=== PATIENT | male | born 1965 | race Hispanic/Latino ===

== ENCOUNTER 2019-10-04 10:23 | Emergency (ER) | payer MEDICARE ==
[~2019-10-04 10:23] MED LIST: INSU100C14 SQ
[2019-10-04 11:05] LABS: CREATININE 1.6 mg/dL (0.5-1.5); POTASSIUM 5.4 mmol/L (3.5-5.1)
[2019-10-04 11:10] LABS: BILIRUBIN,TOTAL 1.9 mg/dL (0.2-1.0)
[2019-10-04 11:17] LABS: BASOPHILS % (AUTO) 0.9 % (0.0-5.0); EOSINOPHILS % (AUTO) 3.8 % (0.0-8.0); HEMATOCRIT 27.2 % (42-54); LYMPHOCYTES % (AUTO) 6.7 % (21.0-51.0); MEAN CORPUSCULAR HGB CONC 33.8 g/dL (32.0-36.0); MEAN CORPUSCULAR VOLUME 91.6 fL (79-99); MONOCYTES % (AUTO) 8.8 % (3.0-13.0); NEUTROPHILS % (AUTO) 79.5 % (40.0-77.0); PLATELET COUNT (AUTO) 30 K/uL (130-400); RED BLOOD CELL COUNT(AUTO) 2.97 MIL/uL (4.50-6.20); RED CELL DISTRIBUTION WIDTH 15.1 % (11.0-15.5); WHITE BLOOD COUNT (AUTO) 3.4 K/uL (4.8-10.8)
[2019-10-04] MEDS ORDERED: LACTULOSE 20 GM/30 ML UDCUP ONE (11:34)
== END 2019-10-04 13:06 | disposition home or self-care (01) ==
LOC: EDH 10:23
DX: K74.60 Unspecified cirrhosis of liver (principal); E72.20 Disorder of urea cycle metabolism, unspecified; E11.9 Type 2 diabetes mellitus without complications
CPT/HCPCS: 36415; 80053; 82140; 85025

== ENCOUNTER → 2021-11-11 | Outpatient (CLI) | payer MEDICARE ==
[~2021-11-11] MED LIST changes: +ALBUMIN (HUMAN) 25% 100 ML IV PRN; +ALBUMIN (HUMAN) 25% 200 ML IV PRN; +LACT PO; +LIDOCAINE HCL MPF 1% 5ML VIAL ONE; +PANT40TA PO; +RIFA550T PO; +SODI650T PO
[2021-11-11 08:53] LABS: INR 1.48 (0.85-1.15); PROTHROMBIN TIME 15.6 SEC (9.6-11.6)
[2021-11-11 08:54] LABS: PARTIAL THROMBOPLASTIN TIME 41.1 SEC (26.3-35.5)
[2021-11-11 14:14] LABS: APPEARANCE BODY FLUID CLOUDY (CLEAR); COLOR,BODY FLUID DARK YELLOW (LT YELLOW); SPECIMENTYPE,BODY FLUID ASCITES
[2021-11-11 14:15] LABS: BODY FLUID WBC 42 /cu. mm.; TOTAL VOLUME,BODY FLUID 8000 mL
[2021-11-11 14:16] LABS: BODY FLUID RBC 1525 /cu. mm.
[2021-11-11 14:26] LABS: BF LYMPHOCYTE 26 %; BF MONOCYTE 49 %
== END | disposition home or self-care (01) ==
LOC: RAH 08:07
PROVIDERS: ATTEND Family Medicine
DX: R18.8 Other ascites (principal); K74.60 Unspecified cirrhosis of liver; K86.1 Other chronic pancreatitis; E11.9 Type 2 diabetes mellitus without complications; Z79.01 Long term (current) use of anticoagulants; Z79.4 Long term (current) use of insulin
CPT/HCPCS: 36415; 49083; 85610; 85730; 87071; 87205; 89051; C1729; 96365; J3490

== ENCOUNTER → 2021-11-17 | Outpatient (CLI) | payer MEDICARE ==
[~2021-11-17] MED LIST changes: -ALBUMIN (HUMAN) 25% 100 ML IV PRN; -ALBUMIN (HUMAN) 25% 200 ML IV PRN; +ALBUMIN (HUMAN) 25% 200 ML IV SCH
[2021-11-17 16:39] LABS: APPEARANCE BODY FLUID SLIGHTLY CLOUDY (CLEAR); BODY FLUID WBC 29 /cu. mm.; COLOR,BODY FLUID YELLOW (LT YELLOW); SPECIMENTYPE,BODY FLUID ASCITES; TOTAL VOLUME,BODY FLUID 8000 mL
[2021-11-17 16:40] LABS: BODY FLUID RBC 827 /cu. mm.
[2021-11-17 16:47] LABS: BF EOSINOPHIL 4 %; BF LYMPHOCYTE 36 %; BF MESOTHELIAL 33 %; BF MONOCYTE 5 %
== END | disposition home or self-care (01) ==
LOC: RAH 08:16
PROVIDERS: ATTEND Family Medicine
DX: R18.8 Other ascites (principal)
CPT/HCPCS: 49083; 87071; 87205; 89051; C1729; J3490 ×2

== ENCOUNTER → 2021-12-22 | Outpatient (CLI) | payer MEDICARE ==
[2021-12-22 14:30] LABS: APPEARANCE BODY FLUID CLEAR (CLEAR); COLOR,BODY FLUID YELLOW (LT YELLOW); SPECIMENTYPE,BODY FLUID ASCITES
[2021-12-22 14:31] LABS: BODY FLUID RBC 710 /cu. mm.; BODY FLUID WBC 34 /cu. mm.; TOTAL VOLUME,BODY FLUID 9500 mL
[2021-12-22 14:40] LABS: BF LYMPHOCYTE 9 %; BF MESOTHELIAL 65 %; BF MONOCYTE 16 %
== END | disposition home or self-care (01) ==
LOC: RAH 08:19
PROVIDERS: ATTEND Family Medicine
DX: R18.8 Other ascites (principal)
CPT/HCPCS: 49083; 87071; 87205; 89051; 96365; C1729; J3490 ×2; P9046

== ENCOUNTER → 2021-12-29 | Outpatient (CLI) | payer MEDICARE ==
[~2021-12-29] MED LIST changes: -LIDOCAINE HCL MPF 1% 5ML VIAL ONE
[2021-12-29 16:53] LABS: SPECIMENTYPE,BODY FLUID ASCITES
[2021-12-29 16:54] LABS: APPEARANCE BODY FLUID CLEAR (CLEAR); BODY FLUID WBC 32 /cu. mm.; COLOR,BODY FLUID YELLOW (LT YELLOW); TOTAL VOLUME,BODY FLUID 6500 mL
[2021-12-29 16:55] LABS: BODY FLUID RBC 422 /cu. mm.
[2021-12-29 18:05] LABS: BF EOSINOPHIL 14 %; BF LYMPHOCYTE 9 %; BF MESOTHELIAL 1 %; BF MONOCYTE 15 %
== END | disposition home or self-care (01) ==
LOC: RAH 08:14
PROVIDERS: ATTEND Family Medicine
DX: R18.8 Other ascites (principal); K74.60 Unspecified cirrhosis of liver; E11.22 Type 2 diabetes mellitus with diabetic chronic kidney disease; K21.9 Gastro-esophageal reflux disease without esophagitis; N18.31 Chronic kidney disease, stage 3a; Z79.01 Long term (current) use of anticoagulants; Z79.899 Other long term (current) drug therapy; Z79.84 Long term (current) use of oral hypoglycemic drugs
CPT/HCPCS: 49083; 87071; 87205; 89051; C1729; P9046

== ENCOUNTER → 2022-01-12 | Outpatient (CLI) | payer MEDICARE ==
[~2022-01-12] MED LIST changes: +LIDOCAINE HCL 1% 20 ML VIAL ONE
[2022-01-12 13:37] LABS: APPEARANCE BODY FLUID SLIGHTLY CLOUDY (CLEAR); BODY FLUID RBC 375 /cu. mm.; BODY FLUID WBC 43 /cu. mm.; COLOR,BODY FLUID YELLOW (LT YELLOW); SPECIMENTYPE,BODY FLUID ASCITES; TOTAL VOLUME,BODY FLUID 8000 mL
[2022-01-12 13:39] LABS: BF LYMPHOCYTE 12 %; BF MESOTHELIAL 72 %; BF MONOCYTE 16 %
== END | disposition home or self-care (01) ==
LOC: RAH 08:30
PROVIDERS: ATTEND Family Medicine
DX: R18.8 Other ascites (principal); K74.60 Unspecified cirrhosis of liver; E11.9 Type 2 diabetes mellitus without complications; K21.9 Gastro-esophageal reflux disease without esophagitis; Z98.890 Other specified postprocedural states; Z79.899 Other long term (current) drug therapy; Z79.4 Long term (current) use of insulin
CPT/HCPCS: 49083; 87071; 87205; 89051; C1729; P9046; 96365

== ENCOUNTER → 2022-01-19 | Outpatient (CLI) | payer MEDICARE ==
[2022-01-19 10:09] LABS: INR 1.41 (0.85-1.15); PROTHROMBIN TIME 15.1 SEC (9.6-11.6)
[2022-01-19 10:11] LABS: PARTIAL THROMBOPLASTIN TIME 46.7 SEC (26.3-35.5)
[2022-01-19 15:53] LABS: BF LYMPHOCYTE 2 %; BF MESOTHELIAL 3 %; BF MONOCYTE 11 %
[2022-01-19 15:56] LABS: APPEARANCE BODY FLUID CLOUDY (CLEAR); COLOR,BODY FLUID LT YELLOW (LT YELLOW); SPECIMENTYPE,BODY FLUID ASCITES; TOTAL VOLUME,BODY FLUID 8700 mL
[2022-01-19 15:57] LABS: BODY FLUID RBC 940 /cu. mm.; BODY FLUID WBC 549 /cu. mm.
== END | disposition home or self-care (01) ==
LOC: RAH 08:34
PROVIDERS: ATTEND Family Medicine
DX: R18.8 Other ascites (principal); E11.9 Type 2 diabetes mellitus without complications; N18.30 Chronic kidney disease, stage 3 unspecified; K21.9 Gastro-esophageal reflux disease without esophagitis; Z79.01 Long term (current) use of anticoagulants; Z79.899 Other long term (current) drug therapy; Z98.890 Other specified postprocedural states
CPT/HCPCS: 36415; 49083; 85610; 85730; 87071; 87205; 89051; C1729; 96365

== ENCOUNTER → 2022-02-02 | Outpatient (CLI) | payer MEDICARE ==
[~2022-02-02] MED LIST changes: +CHOL100046 PO; +FOLI1TAB61 PO; +INSLAN SQ; -LACT PO; +LACT10SO9 PO; -LIDOCAINE HCL 1% 20 ML VIAL ONE; +LIDOCAINE HCL 400MG/20ML VIAL ONE; +LIDOCAINE HCL-MPF 1% 2ML VIAL ONE; -PANT40TA PO; +POTA-10 PO
[2022-02-02 14:00] LABS: APPEARANCE BODY FLUID SLIGHTLY CLOUDY (CLEAR); COLOR,BODY FLUID LT YELLOW (LT YELLOW); SPECIMENTYPE,BODY FLUID ASCITES; TOTAL VOLUME,BODY FLUID 8500 mL
[2022-02-02 14:01] LABS: BODY FLUID RBC 1375 /cu. mm.; BODY FLUID WBC 27 /cu. mm.
[2022-02-02 14:11] LABS: BF EOSINOPHIL 3 %; BF LYMPHOCYTE 8 %; BF MESOTHELIAL 70 %; BF MONOCYTE 4 %
== END | disposition home or self-care (01) ==
LOC: RAH 08:19
PROVIDERS: ATTEND Family Medicine
DX: R18.8 Other ascites (principal)
CPT/HCPCS: 49083; 87071; 87205; 89051; C1729; J3490 ×2; P9046

== ENCOUNTER → 2022-02-09 | Outpatient (CLI) | payer MEDICARE ==
[~2022-02-09] MED LIST changes: +LIDOCAINE HCL 1% MDV 50ML VIAL ONE; -LIDOCAINE HCL 400MG/20ML VIAL ONE; -LIDOCAINE HCL-MPF 1% 2ML VIAL ONE
[2022-02-09 15:48] LABS: APPEARANCE BODY FLUID CLOUDY (CLEAR); SPECIMENTYPE,BODY FLUID ASCITES; TOTAL VOLUME,BODY FLUID 7000 mL
[2022-02-09 15:49] LABS: BODY FLUID RBC 1970 /cu. mm.; BODY FLUID WBC 11 /cu. mm.
[2022-02-09 15:50] LABS: COLOR,BODY FLUID YELLOW (LT YELLOW)
[2022-02-09 17:49] LABS: BF EOSINOPHIL 1 %; BF LYMPHOCYTE 18 %; BF MONOCYTE 17 %
== END | disposition home or self-care (01) ==
LOC: RAH 07:57
PROVIDERS: ATTEND Family Medicine
DX: R18.8 Other ascites (principal); E11.9 Type 2 diabetes mellitus without complications; N18.30 Chronic kidney disease, stage 3 unspecified; K21.9 Gastro-esophageal reflux disease without esophagitis; Z79.899 Other long term (current) drug therapy; Z79.01 Long term (current) use of anticoagulants
CPT/HCPCS: 49083; 87071; 87205; 89051; C1729; J3490; P9046; 96365

== ENCOUNTER → 2022-02-16 | Outpatient (CLI) | payer MEDICARE ==
[~2022-02-16] MED LIST changes: +ALBUMIN (HUMAN) 25% 200 ML IV ONE; -ALBUMIN (HUMAN) 25% 200 ML IV SCH; +SODIUM BICARB 50MEQ 50ML VIAL 50 ML ONE
[2022-02-16 16:16] LABS: APPEARANCE BODY FLUID CLOUDY (CLEAR); SPECIMENTYPE,BODY FLUID ASCITES
[2022-02-16 16:17] LABS: BODY FLUID WBC 8 /cu. mm.; COLOR,BODY FLUID ORANGE (LT YELLOW); TOTAL VOLUME,BODY FLUID 9800 mL
[2022-02-16 16:18] LABS: BODY FLUID RBC 4620 /cu. mm.
[2022-02-16 21:09] LABS: BF LYMPHOCYTE 16 %; BF MONOCYTE 15 %; BF OTHER CELLS 2
== END | disposition home or self-care (01) ==
LOC: RAH 08:06
PROVIDERS: ATTEND Family Medicine
DX: R18.8 Other ascites (principal); E11.22 Type 2 diabetes mellitus with diabetic chronic kidney disease; N18.30 Chronic kidney disease, stage 3 unspecified; K21.9 Gastro-esophageal reflux disease without esophagitis; Z79.01 Long term (current) use of anticoagulants; Z79.899 Other long term (current) drug therapy
CPT/HCPCS: 49083; 87071; 87205; 89051; C1729; J3490 ×2; P9046; 96365

== ENCOUNTER → 2022-02-23 | Outpatient (CLI) | payer MEDICARE ==
[~2022-02-23] MED LIST changes: -ALBUMIN (HUMAN) 25% 200 ML IV ONE; +ALBUMIN (HUMAN) 25% 200 ML IV SCH; -SODIUM BICARB 50MEQ 50ML VIAL 50 ML ONE
[2022-02-23 14:55] LABS: APPEARANCE BODY FLUID CLEAR (CLEAR); BODY FLUID RBC 499 /cu. mm.; BODY FLUID WBC 27 /cu. mm.; COLOR,BODY FLUID YELLOW (LT YELLOW); SPECIMENTYPE,BODY FLUID ASCITES; TOTAL VOLUME,BODY FLUID 8700 mL
[2022-02-23 15:19] LABS: BF LYMPHOCYTE 14 %; BF MESOTHELIAL 73 %; BF MONOCYTE 12 %
== END | disposition home or self-care (01) ==
LOC: RAH 07:43
PROVIDERS: ATTEND Family Medicine
DX: R18.8 Other ascites (principal); K75.81 Nonalcoholic steatohepatitis (NASH); E11.22 Type 2 diabetes mellitus with diabetic chronic kidney disease; N18.30 Chronic kidney disease, stage 3 unspecified; K21.9 Gastro-esophageal reflux disease without esophagitis; Z79.899 Other long term (current) drug therapy; Z79.01 Long term (current) use of anticoagulants; Z79.4 Long term (current) use of insulin; Z98.890 Other specified postprocedural states
CPT/HCPCS: 49083; 87071; 87205; 89051; C1729; J3490; P9046; 96365

== ENCOUNTER 2022-03-09 23:25 | Observation (INO) | payer MEDICARE ==
[~2022-03-09] VITALS: Ht 172.7 cm; Wt 75.7 kg
[~2022-03-09 23:25] MED LIST changes: -ALBUMIN (HUMAN) 25% 200 ML IV SCH; -LIDOCAINE HCL 1% MDV 50ML VIAL ONE
[2022-03-10 00:32] LABS: BASOPHILS % (AUTO) 0.3 % (0.0-5.0); EOSINOPHILS % (AUTO) 0.8 % (0.0-8.0); HEMATOCRIT 23.6 % (42-54); LYMPHOCYTES % (AUTO) 4.7 % (21.0-51.0); MEAN CORPUSCULAR HEMOGLOBIN 33.1 pg (27.0-33.0); MEAN CORPUSCULAR HGB CONC 34.3 g/dL (32.0-36.0); MEAN CORPUSCULAR VOLUME 96.3 fL (79-99); MONOCYTES % (AUTO) 10.4 % (3.0-13.0); NEUTROPHILS % (AUTO) 83.5 % (40.0-77.0); PLATELET COUNT (AUTO) 16 K/uL (130-400); RED BLOOD CELL COUNT(AUTO) 2.45 MIL/uL (4.50-6.20); RED CELL DISTRIBUTION WIDTH 16.2 % (11.0-15.5); WHITE BLOOD COUNT (AUTO) 3.8 K/uL (4.8-10.8)
[2022-03-10 00:41] LABS: CREATININE 3.3 mg/dL (0.5-1.5); POTASSIUM 3.6 mmol/L (3.5-5.1)
[2022-03-10 00:44] LABS: INR 1.38 (0.85-1.15); PROTHROMBIN TIME 14.8 SEC (9.6-11.6)
[2022-03-10 00:46] LABS: PARTIAL THROMBOPLASTIN TIME 41.2 SEC (26.3-35.5); TOTAL PROTEIN, SERUM 6.8 g/dL (6.0-8.3)
[2022-03-10 01:04] LABS: BAND NEUTROPHILS % (MANUAL) 3 % (0-2); BASOPHILS % (MANUAL) 1 % (0-2); EOSINOPHILS % (MANUAL) 1 % (1-6); LYMPHOCYTES % (MANUAL) 8 % (22-44); MONOCYTES % (MANUAL) 7 % (2-9); SEGMENTED NEUTROPHILS % 80 % (40-70)
[2022-03-10 01:05] LABS: MAN.DIFF COMMENT-IMPRESSION MANUAL DIFFERENTIAL; PLATELET MORPHOLOGY COMMENT DECREASED
[2022-03-10 02:05] VITALS: BP 125/65
[2022-03-10] MEDS ORDERED: DiphenhydrAMINE HCL 50 MG/ML VIAL IV PRN (04:00)
[2022-03-10] MEDS ORDERED: ONDANSETRON 4MG INJ IV PRN (04:00)
[2022-03-10] MEDS ORDERED: LACTULOSE 20 GM/30 ML UDCUP PO ONE (04:00)
[2022-03-10] MEDS ORDERED: CEFTRIAXONE 1G VIAL IV SCH (04:00)
[2022-03-10] MEDS ORDERED: LACTULOSE 20 GM/30 ML UDCUP PO PRN (04:00)
[2022-03-10] MEDS ORDERED: DEXTROSE 50%-WATER 50 ML DISP.SYRIN IV PRN (05:30)
[2022-03-10] MEDS ORDERED: GLUCAGON 1MG KIT 1 MG ML IM PRN (05:30)
[2022-03-10 07:00] VITALS: BP_SYST 114; BP_SYST 125; BP_DIAS 58; BP_DIAS 70
[2022-03-10] MEDS: INSULIN HUMULIN R 100 UNIT/ML 3ML SQ SCH ×2 (07:30→11:30)
[2022-03-10] MEDS ORDERED: LACTULOSE 20 GM/30 ML UDCUP PO SCH (09:00)
[2022-03-10] MEDS ORDERED: PANTOPRAZOLE 40 MG/VIAL IVP SCH (09:00)
[2022-03-10] MEDS ORDERED: LIDOCAINE HCL 1% 10 ML VIAL ONE (11:04)
[2022-03-10] MEDS ORDERED: ALBUMIN (HUMAN) 25% 200 ML IV ONE (11:06)
[2022-03-10] MEDS ORDERED: ALBUMIN (HUMAN) 25% 300 ML IV SCH (12:00)
[2022-03-10 13:50] VITALS: BP 128/65
[2022-03-10] MEDS ORDERED: CYANOCOBALAMIN (VITAMIN B-12) 1,000 MCG TABLET PO SCH (14:30)
[2022-03-10] MEDS ORDERED: FOLIC ACID 1 MG TABLET PO SCH (14:30)
[2022-03-10] MEDS ORDERED: CYANOCOBALAMIN (VITAMIN B-12) 100 MCG TABLET ONE (14:37)
[2022-03-10] MEDS ORDERED: FOLIC ACID 1 MG TABLET ONE (14:37)
[2022-03-10 16:50] LABS: SPECIMENTYPE,BODY FLUID ASCITES
[2022-03-10 16:51] LABS: APPEARANCE BODY FLUID SLIGHTLY CLOUDY (CLEAR); BODY FLUID WBC 18 /cu. mm.; COLOR,BODY FLUID LT YELLOW (LT YELLOW); TOTAL VOLUME,BODY FLUID 12000 mL
[2022-03-10 16:52] LABS: BODY FLUID RBC 1174 /cu. mm.
[2022-03-10 17:50] LABS: BF LYMPHOCYTE 13 %; BF MESOTHELIAL 4 %; BF MONOCYTE 6 %; BF OTHER CELLS 5
[2022-03-30] MEDS ORDERED: SUCR1TAB2 PO (10:51)
== END 2022-03-10 14:30 | disposition home or self-care (01) ==
LOC: EDH 23:25 → INTOOBSV 03-10 03:56 → EDHIP 03-10 03:56 → 3CH 03-10 06:29
PROVIDERS: ADMIT Hospitalist; ATTEND Hospitalist
DX: K74.60 Unspecified cirrhosis of liver (principal); Z20.822 Contact with and (suspected) exposure to COVID-19; D69.6 Thrombocytopenia, unspecified; D61.818 Other pancytopenia; E72.20 Disorder of urea cycle metabolism, unspecified; N18.4 Chronic kidney disease, stage 4 (severe); D63.8 Anemia in other chronic diseases classified elsewhere; E11.22 Type 2 diabetes mellitus with diabetic chronic kidney disease; I63.9 Cerebral infarction, unspecified; I78.1 Nevus, non-neoplastic; K74.69 Other cirrhosis of liver; K76.0 Fatty (change of) liver, not elsewhere classified; L80 Vitiligo; R18.8 Other ascites; R29.700 NIHSS score 0; Z76.82 Awaiting organ transplant status; Z79.4 Long term (current) use of insulin; Z98.890 Other specified postprocedural states; Z79.899 Other long term (current) drug therapy
CPT/HCPCS: 96375; 36430; 99285; 80053; 82140; 85025; 89051; 85610; 85730; 86850; 86900; 86901; 87071; 87205; 82948; 36415; 87635; 74176; 49083; 96365; G0378 ×4; P9034; J0696; J3490; C9113; P9046 ×2; C1729

== ENCOUNTER 2022-03-22 18:13 | Inpatient (IN) | payer MEDICARE ==
[~2022-03-22] VITALS: Ht 172.7 cm; Wt 63.6 kg
[2022-03-22] MEDS ORDERED: ONDANSETRON 4MG INJ IVP ONE (20:00)
[2022-03-22 20:03] LABS: BASOPHILS % (AUTO) 0.4 % (0.0-5.0); EOSINOPHILS % (AUTO) 1.6 % (0.0-8.0); HEMATOCRIT 23.8 % (42-54); LYMPHOCYTES % (AUTO) 4.1 % (21.0-51.0); MEAN CORPUSCULAR HEMOGLOBIN 33.2 pg (27.0-33.0); MEAN CORPUSCULAR HGB CONC 35.7 g/dL (32.0-36.0); MONOCYTES % (AUTO) 7.1 % (3.0-13.0); NEUTROPHILS % (AUTO) 86.3 % (40.0-77.0); PLATELET COUNT (AUTO) 27 K/uL (130-400); RED BLOOD CELL COUNT(AUTO) 2.56 MIL/uL (4.50-6.20); RED CELL DISTRIBUTION WIDTH 16.2 % (11.0-15.5); WHITE BLOOD COUNT (AUTO) 7.4 K/uL (4.8-10.8)
[2022-03-22 20:19] LABS: B-TYPE NATRIURETIC PEPTIDE 14 pg/mL (0-100)
[2022-03-22 20:20] LABS: APPEARANCE,URINE CLEAR (CLEAR); BILIRUBIN,URINE NEGATIVE (NEGATIVE); COLOR,URINE YELLOW (YELLOW); GLUCOSE, URINE (UA) NEGATIVE (NEGATIVE); KETONES,URINE NEGATIVE (NEGATIVE); LEUKOCYTE ESTERASE ,URINE NEGATIVE (NEGATIVE); NITRATE,URINE NEGATIVE (NEGATIVE); OCCULT BLOOD,URINE NEGATIVE (NEGATIVE); PH,URINE 5.5 (5.0-8.0); PROTEIN,URINE NEGATIVE (NEGATIVE); UROBILINOGEN,URINE 0.2 mg/dL (0.2-1.0)
[2022-03-22 20:27] LABS: ALBUMIN 3.4 g/dL (3.5-5.0); CREATININE 4.1 mg/dL (0.5-1.5); POTASSIUM 4.2 mmol/L (3.5-5.1); TOTAL PROTEIN, SERUM 7.3 g/dL (6.0-8.3)
[2022-03-22] MEDS ORDERED: LACTULOSE 20 GM/30 ML UDCUP PO ONE (21:00)
[2022-03-22] MEDS ORDERED: ONDANSETRON 4MG INJ IV PRN (21:00)
[2022-03-22] MEDS ORDERED: 0.9% NACL 500ML IV.SOLN 500 ML IV ONE (21:00)
[2022-03-22] MEDS: LACTULOSE 20 GM/30 ML UDCUP PO SCH (21:15)
[2022-03-22] MEDS: 0.9%NACL 1000ML 1,000 ML IV SCH (21:15)
[2022-03-22] MEDS: INSULIN HUMULIN R 100 UNIT/ML 3ML SQ SCH (21:34)
[2022-03-22 21:42] LABS: INR 1.31 (0.85-1.15); PROTHROMBIN TIME 14.1 SEC (9.6-11.6)
[2022-03-22 21:43] LABS: PARTIAL THROMBOPLASTIN TIME 43.9 SEC (26.3-35.5)
[2022-03-22 23:49] LABS: ABG BASE EXCESS -9.3 mmol/L (-2.0-3.0); ABG HCO3 12.9 mmol/L (21.0-28.0); ABG OXYGEN SATURATION 92.5 % (95.0-99.0); ABG PCO2 21 mmHg (35-48)
[2022-03-23] VITALS (9 sets, daily range): BP systolic 109–131; BP diastolic 61–68
[2022-03-23 00:14] LABS: CREATININE,URINE RANDOM 127 mg/dL (30-135); SODIUM,URINE RANDOM < 14 mmol/l (40-220)
[2022-03-23] MEDS: LACTULOSE 20 GM/30 ML UDCUP PO SCH ×4 (03:34→21:00)
[2022-03-23 07:29] LABS: BASOPHILS % (AUTO) 0.4 % (0.0-5.0); EOSINOPHILS % (AUTO) 3.5 % (0.0-8.0); LYMPHOCYTES % (AUTO) 5.5 % (21.0-51.0); MEAN CORPUSCULAR HEMOGLOBIN 33.6 pg (27.0-33.0); MEAN CORPUSCULAR HGB CONC 35.9 g/dL (32.0-36.0); MEAN CORPUSCULAR VOLUME 93.7 fL (79-99); MONOCYTES % (AUTO) 10.9 % (3.0-13.0); NEUTROPHILS % (AUTO) 79.5 % (40.0-77.0); PLATELET COUNT (AUTO) 18 K/uL (130-400); RED BLOOD CELL COUNT(AUTO) 2.23 MIL/uL (4.50-6.20); RED CELL DISTRIBUTION WIDTH 16.3 % (11.0-15.5); WHITE BLOOD COUNT (AUTO) 4.5 K/uL (4.8-10.8)
[2022-03-23 07:40] LABS: HEMATOCRIT 20.9 % (42-54); MAGNESIUM 2.4 mg/dL (1.80-2.40); PHOSPHORUS 5.5 mg/dL (2.5-4.9); POTASSIUM 3.4 mmol/L (3.5-5.1)
[2022-03-23] MEDS: INSULIN HUMULIN R 100 UNIT/ML 3ML SQ SCH ×4 (07:40→21:00)
[2022-03-23] MEDS: FAMOTIDINE 20MG VIAL IV SCH (08:52)
[2022-03-23] MEDS: Vitamin B Complex/Vit C/Folic Acid PO SCH (08:52)
[2022-03-23] MEDS ORDERED: ALBUMIN (HUMAN) 25% 200 ML IV SCH ×3 (11:00→14:30)
[2022-03-23 12:33] LABS: APPEARANCE BODY FLUID CLOUDY (CLEAR); SPECIMENTYPE,BODY FLUID ASCITES; TOTAL VOLUME,BODY FLUID 5200 mL
[2022-03-23 12:34] LABS: COLOR,BODY FLUID PINK (LT YELLOW)
[2022-03-23 12:41] LABS: BODY FLUID RBC 7075 /cu. mm.; BODY FLUID WBC 47 /cu. mm.
[2022-03-23] MEDS: 0.9%NACL 1000ML 1,000 ML IV SCH (13:40)
[2022-03-23 13:48] LABS: BF BASOPHIL 1 %; BF LYMPHOCYTE 44 %; BF MESOTHELIAL 33 %; BF MONOCYTE 21 %
[2022-03-23] MEDS: ALBUMIN (HUMAN) 25% 100 ML IV SCH (21:27)
[2022-03-24 00:10] VITALS: BP 131/64
[2022-03-24 04:20] LABS: MEAN CORPUSCULAR HGB CONC 35.4 g/dL (32.0-36.0); MEAN CORPUSCULAR VOLUME 93.1 fL (79-99); RED BLOOD CELL COUNT(AUTO) 1.88 MIL/uL (4.50-6.20); RED CELL DISTRIBUTION WIDTH 15.7 % (11.0-15.5); WHITE BLOOD COUNT (AUTO) 3.2 K/uL (4.8-10.8)
[2022-03-24 04:26] LABS: HEMATOCRIT 17.5 % (42-54)
[2022-03-24 04:34] LABS: ALBUMIN 3.3 g/dL (3.5-5.0); CREATININE 3.7 mg/dL (0.5-1.5); TOTAL PROTEIN, SERUM 6.2 g/dL (6.0-8.3)
[2022-03-24] MEDS: ALBUMIN (HUMAN) 25% 100 ML IV SCH ×3 (04:40→22:01)
[2022-03-24] MEDS: LACTULOSE 20 GM/30 ML UDCUP PO SCH ×3 (04:43→18:21)
[2022-03-24 04:48] VITALS: BP 131/51
[2022-03-24] MEDS ORDERED: KCL 20 MEQ ERTAB PO ONE (05:30)
[2022-03-24] MEDS: INSULIN HUMULIN R 100 UNIT/ML 3ML SQ SCH ×4 (06:19→22:02)
[2022-03-24 07:00] VITALS: BP 128/60
[2022-03-24] MEDS: Vitamin B Complex/Vit C/Folic Acid PO SCH (08:47)
[2022-03-24] MEDS: FAMOTIDINE 20MG VIAL IV SCH (09:48)
[2022-03-24 10:44] VITALS: BP 139/62
[2022-03-24 10:58] LABS: HEMATOCRIT 20.2 % (42-54)
[2022-03-24 15:27] VITALS: BP 133/64
[2022-03-24 21:01] VITALS: BP 146/79
[2022-03-25] VITALS: BP 138/78
[2022-03-25] MEDS: LACTULOSE 20 GM/30 ML UDCUP PO SCH ×2 (00:08→05:12)
[2022-03-25 00:39] VITALS: BP 132/75
[2022-03-25] MEDS: ALBUMIN (HUMAN) 25% 100 ML IV SCH (05:13)
[2022-03-25 05:14] VITALS: BP 124/49
[2022-03-25 05:21] LABS: MEAN CORPUSCULAR HEMOGLOBIN 33.2 pg (27.0-33.0); MEAN CORPUSCULAR HGB CONC 35.8 g/dL (32.0-36.0); MEAN CORPUSCULAR VOLUME 92.7 fL (79-99); RED BLOOD CELL COUNT(AUTO) 2.05 MIL/uL (4.50-6.20); RED CELL DISTRIBUTION WIDTH 15.7 % (11.0-15.5); WHITE BLOOD COUNT (AUTO) 3.8 K/uL (4.8-10.8)
[2022-03-25 05:30] LABS: CREATININE 3.4 mg/dL (0.5-1.5); POTASSIUM 3.6 mmol/L (3.5-5.1)
[2022-03-25] MEDS: INSULIN HUMULIN R 100 UNIT/ML 3ML SQ SCH (06:44)
[2022-03-25] MEDS: Vitamin B Complex/Vit C/Folic Acid PO SCH (07:55)
[2022-03-25 08:00] VITALS: BP 143/68
[2022-03-25] MEDS: FAMOTIDINE 20MG VIAL IV SCH (09:30)
[2022-03-25 10:16] LABS: BASOPHILS % (AUTO) 0.5 % (0.0-5.0); EOSINOPHILS % (AUTO) 3.8 % (0.0-8.0); LYMPHOCYTES % (AUTO) 5.6 % (21.0-51.0); MEAN CORPUSCULAR HEMOGLOBIN 33.5 pg (27.0-33.0); MEAN CORPUSCULAR HGB CONC 35.9 g/dL (32.0-36.0); MEAN CORPUSCULAR VOLUME 93.3 fL (79-99); MONOCYTES % (AUTO) 12.8 % (3.0-13.0); NEUTROPHILS % (AUTO) 76.5 % (40.0-77.0); PLATELET COUNT (AUTO) 13 K/uL (130-400); RED BLOOD CELL COUNT(AUTO) 2.24 MIL/uL (4.50-6.20); RED CELL DISTRIBUTION WIDTH 15.4 % (11.0-15.5); WHITE BLOOD COUNT (AUTO) 3.9 K/uL (4.8-10.8)
[2022-03-25 10:23] LABS: HEMATOCRIT 20.9 % (42-54)
[2022-03-25 11:33] VITALS: BP 154/70
[2022-03-25] MEDS ORDERED: LACT PO ×2 (11:40→12:23)
[2022-03-30] MEDS ORDERED: SUCR1TAB2 PO (10:51)
== END 2022-03-25 11:58 | disposition home or self-care (01) | DRG 433 ==
LOC: EDH 18:13 → EDHIP 20:50 → 2DH 03-23 08:30 → 4BH 03-25 00:08
PROVIDERS: ADMIT Hospitalist; ATTEND Hospitalist
PROC: 0W9G3ZZ Drainage of Peritoneal Cavity, Percutaneous Approach (ICD-10-PCS; principal; 2022-03-23)
PROC: 30233N1 Transfusion of Nonautologous Red Blood Cells into Peripheral Vein, Percutaneous Approach (ICD-10-PCS; 2022-03-24)
DX: K74.60 Unspecified cirrhosis of liver (principal); D61.818 Other pancytopenia; N17.9 Acute kidney failure, unspecified; R18.8 Other ascites; K72.90 Hepatic failure, unspecified without coma; N18.9 Chronic kidney disease, unspecified; D73.1 Hypersplenism; E11.65 Type 2 diabetes mellitus with hyperglycemia; E11.22 Type 2 diabetes mellitus with diabetic chronic kidney disease; D63.8 Anemia in other chronic diseases classified elsewhere; Z82.0 Family history of epilepsy and other diseases of the nervous system; Z82.49 Family history of ischemic heart disease and other diseases of the circulatory system; Z83.3 Family history of diabetes mellitus; Z82.5 Family history of asthma and other chronic lower respiratory diseases; Z79.4 Long term (current) use of insulin; D50.0 Iron deficiency anemia secondary to blood loss (chronic)
CPT/HCPCS: 36415; 36600; 49083; 74018; 80048; 80053; 81003; 82140; 82270; 82570; 82803; 82948; 83735; 83880; 84100; 84300; 84484; 85014; 85018; 85025; 85027; 85610; 85730; 86850; 86900; 86901; 86923; 87071; 87205; 89051; 93005; C1729; G0378; J1815; J2405; J3490; J7030; J7040; P9016; P9046

== ENCOUNTER → 2022-04-08 | Outpatient (CLI) | payer MEDICARE ==
[~2022-04-08] MED LIST changes: +ALBUMIN (HUMAN) 25% 200 ML IV SCH; -INSU100C14 SQ; +LACT PO; +LIDOCAINE HCL-MPF 1% 2ML VIAL ONE; -POTA-10 PO; +POTA-200 PO; -SODI650T PO; +SUCR1TAB2 PO
[2022-04-08 13:02] LABS: APPEARANCE BODY FLUID CLEAR (CLEAR); COLOR,BODY FLUID YELLOW (LT YELLOW); SPECIMENTYPE,BODY FLUID ASCITES; TOTAL VOLUME,BODY FLUID 11000 mL
[2022-04-08 13:03] LABS: BODY FLUID RBC 993 /cu. mm.; BODY FLUID WBC 24 /cu. mm.
[2022-04-08 13:17] LABS: BF LYMPHOCYTE 25 %; BF MESOTHELIAL 50 %; BF MONOCYTE 15 %
== END | disposition home or self-care (01) ==
LOC: RAH 07:54
PROVIDERS: ATTEND Family Medicine
DX: R18.8 Other ascites (principal); K74.60 Unspecified cirrhosis of liver; E11.22 Type 2 diabetes mellitus with diabetic chronic kidney disease; N18.9 Chronic kidney disease, unspecified; D69.6 Thrombocytopenia, unspecified; K72.90 Hepatic failure, unspecified without coma; Z82.49 Family history of ischemic heart disease and other diseases of the circulatory system; Z83.3 Family history of diabetes mellitus; Z82.5 Family history of asthma and other chronic lower respiratory diseases; Z82.0 Family history of epilepsy and other diseases of the nervous system; Z98.890 Other specified postprocedural states; Z82.3 Family history of stroke; Z80.9 Family history of malignant neoplasm, unspecified
CPT/HCPCS: 49083; 89051; 87071; 87205; P9046; J3490; C1729; 96365

== ENCOUNTER → 2022-04-13 | Outpatient (CLI) | payer MEDICARE ==
[~2022-04-13] MED LIST changes: -LIDOCAINE HCL-MPF 1% 2ML VIAL ONE
[2022-04-13 13:19] LABS: APPEARANCE BODY FLUID CLOUDY (CLEAR); BODY FLUID WBC 42 /cu. mm.; COLOR,BODY FLUID YELLOW (LT YELLOW); SPECIMENTYPE,BODY FLUID ASCITES; TOTAL VOLUME,BODY FLUID 8700 mL
[2022-04-13 13:20] LABS: BODY FLUID RBC 2300 /cu. mm.
[2022-04-13 13:38] LABS: BF LYMPHOCYTE 19 %; BF MESOTHELIAL 58 %; BF MONOCYTE 16 %
== END | disposition home or self-care (01) ==
LOC: RAH 07:51
PROVIDERS: ATTEND Family Medicine
DX: R18.8 Other ascites (principal); K74.60 Unspecified cirrhosis of liver; E11.22 Type 2 diabetes mellitus with diabetic chronic kidney disease; N18.9 Chronic kidney disease, unspecified; D69.6 Thrombocytopenia, unspecified; K72.90 Hepatic failure, unspecified without coma; Z82.49 Family history of ischemic heart disease and other diseases of the circulatory system; Z83.3 Family history of diabetes mellitus; Z82.5 Family history of asthma and other chronic lower respiratory diseases; Z82.0 Family history of epilepsy and other diseases of the nervous system; Z98.890 Other specified postprocedural states; Z82.3 Family history of stroke; Z80.9 Family history of malignant neoplasm, unspecified; Z79.01 Long term (current) use of anticoagulants; Z79.899 Other long term (current) drug therapy
CPT/HCPCS: 49083; 89051; 87071; 87205; P9046; C1729; 96365

== ENCOUNTER → 2022-04-20 | Outpatient (CLI) | payer MEDICARE ==
[~2022-04-20] MED LIST changes: +LIDOCAINE HCL-MPF 1% 2ML VIAL ONE
[2022-04-20 13:55] LABS: APPEARANCE BODY FLUID CLOUDY (CLEAR); BODY FLUID WBC 46 /cu. mm.; COLOR,BODY FLUID RED (LT YELLOW); SPECIMENTYPE,BODY FLUID ASCITES; TOTAL VOLUME,BODY FLUID 11000 mL
[2022-04-20 13:56] LABS: BODY FLUID RBC 26425 /cu. mm.
[2022-04-20 14:15] LABS: BF EOSINOPHIL 2 %; BF LYMPHOCYTE 12 %; BF MESOTHELIAL 55 %; BF MONOCYTE 17 %
== END | disposition home or self-care (01) ==
LOC: RAH 07:52
PROVIDERS: ATTEND Family Medicine
DX: R18.8 Other ascites (principal); K74.60 Unspecified cirrhosis of liver; K72.90 Hepatic failure, unspecified without coma; E11.22 Type 2 diabetes mellitus with diabetic chronic kidney disease; N18.9 Chronic kidney disease, unspecified; D69.6 Thrombocytopenia, unspecified; Z79.899 Other long term (current) drug therapy; Z79.01 Long term (current) use of anticoagulants; Z98.890 Other specified postprocedural states; Z83.3 Family history of diabetes mellitus; Z82.5 Family history of asthma and other chronic lower respiratory diseases; Z82.0 Family history of epilepsy and other diseases of the nervous system; Z80.9 Family history of malignant neoplasm, unspecified; Z82.3 Family history of stroke
CPT/HCPCS: 49083; 89051; 87071; 87205; P9046; J3490; C1729; 96365

== ENCOUNTER → 2022-04-27 | Outpatient (CLI) | payer MEDICARE ==
[~2022-04-27] MED LIST changes: -ALBUMIN (HUMAN) 25% 200 ML IV SCH; +ALBUMIN (HUMAN) 25% 300 ML IV SCH; +LIDOCAINE HCL 1% 20 ML VIAL ONE; -LIDOCAINE HCL-MPF 1% 2ML VIAL ONE
[2022-04-27 16:09] LABS: SPECIMENTYPE,BODY FLUID ASCITES
[2022-04-27 16:10] LABS: APPEARANCE BODY FLUID SLIGHTLY CLOUDY (CLEAR); COLOR,BODY FLUID LT YELLOW (LT YELLOW); TOTAL VOLUME,BODY FLUID 7500 mL
[2022-04-27 16:15] LABS: BODY FLUID WBC 38 /cu. mm.
[2022-04-27 16:16] LABS: BODY FLUID RBC 1590 /cu. mm.
[2022-04-27 16:21] LABS: BF LYMPHOCYTE 27 %; BF MESOTHELIAL 23 %; BF MONOCYTE 3 %
== END | disposition home or self-care (01) ==
LOC: RAH 08:07
PROVIDERS: ATTEND Family Medicine
DX: R18.8 Other ascites (principal); K74.60 Unspecified cirrhosis of liver; K72.90 Hepatic failure, unspecified without coma; E11.22 Type 2 diabetes mellitus with diabetic chronic kidney disease; N18.9 Chronic kidney disease, unspecified; D69.6 Thrombocytopenia, unspecified; Z98.890 Other specified postprocedural states; Z83.3 Family history of diabetes mellitus; Z82.5 Family history of asthma and other chronic lower respiratory diseases; Z82.0 Family history of epilepsy and other diseases of the nervous system; Z80.9 Family history of malignant neoplasm, unspecified; Z82.3 Family history of stroke; Z79.01 Long term (current) use of anticoagulants; Z79.899 Other long term (current) drug therapy
CPT/HCPCS: 49083; 89051; 87071; 87205; C1729; 96365

== ENCOUNTER → 2022-05-05 | Outpatient (CLI) | payer MEDICARE ==
[~2022-05-05] MED LIST changes: +ALBUMIN (HUMAN) 25% 200 ML IV SCH; -ALBUMIN (HUMAN) 25% 300 ML IV SCH; -LIDOCAINE HCL 1% 20 ML VIAL ONE; +PANT40TA PO
[2022-05-05 09:11] LABS: INR 1.36 (0.85-1.15); PROTHROMBIN TIME 14.6 SEC (9.6-11.6)
[2022-05-05 09:12] LABS: PARTIAL THROMBOPLASTIN TIME 43.3 SEC (26.3-35.5)
[2022-05-05 12:10] LABS: APPEARANCE BODY FLUID SLIGHTLY CLOUDY (CLEAR); BODY FLUID WBC 103 /cu. mm.; COLOR,BODY FLUID YELLOW (LT YELLOW); SPECIMENTYPE,BODY FLUID ASCITES; TOTAL VOLUME,BODY FLUID 8500 mL
[2022-05-05 12:11] LABS: BODY FLUID RBC 1409 /cu. mm.
[2022-05-05 12:23] LABS: BF LYMPHOCYTE 2 %; BF MESOTHELIAL 14 %; BF MONOCYTE 25 %
== END | disposition home or self-care (01) ==
LOC: RAH 08:08
PROVIDERS: ATTEND Family Medicine
DX: R18.8 Other ascites (principal); K74.60 Unspecified cirrhosis of liver; K72.90 Hepatic failure, unspecified without coma; E11.22 Type 2 diabetes mellitus with diabetic chronic kidney disease; N18.9 Chronic kidney disease, unspecified; D69.6 Thrombocytopenia, unspecified; Z98.890 Other specified postprocedural states; Z83.3 Family history of diabetes mellitus; Z82.5 Family history of asthma and other chronic lower respiratory diseases; Z82.3 Family history of stroke; Z79.01 Long term (current) use of anticoagulants; Z79.899 Other long term (current) drug therapy; Z80.9 Family history of malignant neoplasm, unspecified; Z82.0 Family history of epilepsy and other diseases of the nervous system
CPT/HCPCS: 49083; 89051; 85610; 85730; 87071; 87205; 36415; P9046; C1729

== ENCOUNTER → 2022-06-02 | Outpatient (CLI) | payer MEDICARE ==
[~2022-06-02] MED LIST changes: -CHOL100046 PO; -FOLI1TAB61 PO; -LACT10SO9 PO; +Midodrine Hcl PO; -POTA-200 PO; -SUCR1TAB2 PO
[2022-06-02 18:41] LABS: APPEARANCE BODY FLUID CLOUDY (CLEAR); COLOR,BODY FLUID YELLOW (LT YELLOW); SPECIMENTYPE,BODY FLUID ASCITES; TOTAL VOLUME,BODY FLUID 11400 mL
[2022-06-02 18:42] LABS: BODY FLUID RBC 1138 /cu. mm.; BODY FLUID WBC 13 /cu. mm.
[2022-06-02 18:47] LABS: BF LYMPHOCYTE 13 %; BF MONOCYTE 15 %; BF OTHER CELLS 4
== END | disposition home or self-care (01) ==
LOC: RAH 08:09
PROVIDERS: ATTEND Family Medicine
DX: R18.8 Other ascites (principal); K74.69 Other cirrhosis of liver; Z82.3 Family history of stroke; Z80.9 Family history of malignant neoplasm, unspecified; Z82.0 Family history of epilepsy and other diseases of the nervous system; Z79.4 Long term (current) use of insulin; Z98.890 Other specified postprocedural states
CPT/HCPCS: 49083; 89051; 87071; 87205; P9046; C1729; 96365

== ENCOUNTER → 2022-06-09 | Outpatient (CLI) | payer MEDICARE ==
[~2022-06-09] MED LIST changes: -ALBUMIN (HUMAN) 25% 200 ML IV SCH; +ALBUMIN (HUMAN) 25% 300 ML IV ONE; +LIDOCAINE HCL-MPF 1% 2ML VIAL ONE
[2022-06-09 14:19] LABS: APPEARANCE BODY FLUID SLIGHTLY CLOUDY (CLEAR); COLOR,BODY FLUID YELLOW (LT YELLOW); SPECIMENTYPE,BODY FLUID ASCITES; TOTAL VOLUME,BODY FLUID 9600 mL
[2022-06-09 14:20] LABS: BODY FLUID RBC 1611 /cu. mm.; BODY FLUID WBC 36 /cu. mm.
[2022-06-09 15:14] LABS: BF BASOPHIL 1 %; BF LYMPHOCYTE 18 %; BF MESOTHELIAL 35 %; BF MONOCYTE 1 %
== END | disposition home or self-care (01) ==
LOC: RAH 06:53
PROVIDERS: ATTEND Family Medicine
DX: R18.8 Other ascites (principal); K74.69 Other cirrhosis of liver; D64.9 Anemia, unspecified; E11.9 Type 2 diabetes mellitus without complications; D69.6 Thrombocytopenia, unspecified; Z82.3 Family history of stroke; Z80.9 Family history of malignant neoplasm, unspecified; Z98.890 Other specified postprocedural states; Z82.49 Family history of ischemic heart disease and other diseases of the circulatory system; Z82.0 Family history of epilepsy and other diseases of the nervous system; Z82.5 Family history of asthma and other chronic lower respiratory diseases; Z83.3 Family history of diabetes mellitus; Z79.4 Long term (current) use of insulin; Z79.899 Other long term (current) drug therapy; Z79.01 Long term (current) use of anticoagulants
CPT/HCPCS: 49083; 89051; 87071; 87205; P9046; J3490; C1729; 96365

== ENCOUNTER 2022-06-12 09:11 | Observation (INO) | payer MEDICARE ==
[~2022-06-12] VITALS: Ht 172.7 cm; Wt 68.0 kg
[~2022-06-12 09:11] MED LIST changes: -ALBUMIN (HUMAN) 25% 300 ML IV ONE; -LIDOCAINE HCL-MPF 1% 2ML VIAL ONE
[2022-06-12 10:06] LABS: BASOPHILS % (AUTO) 0.4 % (0.0-5.0); EOSINOPHILS % (AUTO) 7.2 % (0.0-8.0); LYMPHOCYTES % (AUTO) 4.7 % (21.0-51.0); MEAN CORPUSCULAR HEMOGLOBIN 33.7 pg (27.0-33.0); MEAN CORPUSCULAR HGB CONC 33.3 g/dL (32.0-36.0); MONOCYTES % (AUTO) 10.8 % (3.0-13.0); NEUTROPHILS % (AUTO) 76.2 % (40.0-77.0); PLATELET COUNT (AUTO) 17 K/uL (130-400); RED BLOOD CELL COUNT(AUTO) 1.93 MIL/uL (4.50-6.20); RED CELL DISTRIBUTION WIDTH 16.3 % (11.0-15.5); WHITE BLOOD COUNT (AUTO) 2.8 K/uL (4.8-10.8)
[2022-06-12 10:21] LABS: CREATININE 2.8 mg/dL (0.5-1.5)
[2022-06-12 10:26] LABS: ALBUMIN 3.3 g/dL (3.5-5.0); TOTAL PROTEIN, SERUM 6.4 g/dL (6.0-8.3)
[2022-06-12 10:32] LABS: HEMATOCRIT 19.5 % (42-54)
[2022-06-12 11:49] LABS: EOSINOPHILS % (MANUAL) 2 % (1-6); LYMPHOCYTES % (MANUAL) 5 % (22-44); MAN.DIFF COMMENT-IMPRESSION MANUAL DIFFERENTIAL; MONOCYTES % (MANUAL) 4 % (2-9); SEGMENTED NEUTROPHILS % 89 % (40-70)
[2022-06-12 11:51] LABS: PLATELET MORPHOLOGY COMMENT MARKED DECREASE
[2022-06-12 15:56] VITALS: BP 107/42
== END 2022-06-12 16:10 | disposition left against medical advice (07) ==
LOC: EDH 09:11 → EDHIP 11:10
PROVIDERS: ADMIT Hospitalist; ATTEND Hospitalist
DX: D64.9 Anemia, unspecified (principal); K76.82 Hepatic encephalopathy; D61.818 Other pancytopenia; E11.9 Type 2 diabetes mellitus without complications; K74.69 Other cirrhosis of liver; Z76.82 Awaiting organ transplant status; Z79.4 Long term (current) use of insulin; Z79.899 Other long term (current) drug therapy; Z98.890 Other specified postprocedural states
CPT/HCPCS: 36430; 80053; 85025; 86850; 86900 ×2; 86901 ×2; 86923; 36415; 99291; G0378 ×2; P9016

== ENCOUNTER 2022-06-13 15:21 | Emergency (ER) | payer MEDICARE ==
[~2022-06-13] VITALS: Ht 172.7 cm; Wt 68.0 kg
[2022-06-13 15:23] VITALS: BP 133/60
[2022-06-13] MEDS ORDERED: HYDROCODONE/ACETAMINOPHEN 10/325 MG TAB PO ONE (16:00)
[2022-06-13 16:28] LABS: BASOPHILS % (AUTO) 0.2 % (0.0-5.0); EOSINOPHILS % (AUTO) 4.1 % (0.0-8.0); HEMATOCRIT 23.2 % (42-54); LYMPHOCYTES % (AUTO) 2.4 % (21.0-51.0); MEAN CORPUSCULAR HEMOGLOBIN 33.2 pg (27.0-33.0); MEAN CORPUSCULAR HGB CONC 33.6 g/dL (32.0-36.0); MEAN CORPUSCULAR VOLUME 98.7 fL (79-99); MONOCYTES % (AUTO) 7.4 % (3.0-13.0); NEUTROPHILS % (AUTO) 85.4 % (40.0-77.0); PLATELET COUNT (AUTO) 20 K/uL (130-400); RED BLOOD CELL COUNT(AUTO) 2.35 MIL/uL (4.50-6.20); RED CELL DISTRIBUTION WIDTH 17.2 % (11.0-15.5); WHITE BLOOD COUNT (AUTO) 4.2 K/uL (4.8-10.8)
[2022-06-13 16:38] LABS: CREATININE 2.9 mg/dL (0.5-1.5); POTASSIUM 4.8 mmol/L (3.5-5.1)
[2022-06-13 16:42] LABS: ALBUMIN 3.4 g/dL (3.5-5.0); TOTAL PROTEIN, SERUM 6.8 g/dL (6.0-8.3)
== END 2022-06-13 17:22 | disposition home or self-care (01) ==
LOC: EDH 15:21
DX: R18.8 Other ascites (principal); R10.84 Generalized abdominal pain
CPT/HCPCS: 36415; 74176; 80053; 83690; 85025

== ENCOUNTER → 2022-06-15 | Outpatient (CLI) | payer MEDICARE ==
[~2022-06-15] MED LIST changes: +ALBUMIN (HUMAN) 25% 200 ML IV SCH; +LIDOCAINE HCL 1% 20 ML VIAL ONE
[2022-06-15 10:56] LABS: APPEARANCE BODY FLUID SLIGHTLY CLOUDY (CLEAR); BODY FLUID RBC 4080 /cu. mm.; BODY FLUID WBC 40 /cu. mm.; COLOR,BODY FLUID DARK YELLOW (LT YELLOW); SPECIMENTYPE,BODY FLUID ASCITES; TOTAL VOLUME,BODY FLUID 9800 mL
[2022-06-15 11:30] LABS: BF LYMPHOCYTE 14 %; BF MESOTHELIAL 80 %; BF MONOCYTE 1 %
== END | disposition home or self-care (01) ==
LOC: RAH 08:13
PROVIDERS: ATTEND Family Medicine
DX: R18.8 Other ascites (principal); K74.69 Other cirrhosis of liver; E11.9 Type 2 diabetes mellitus without complications; D64.9 Anemia, unspecified; D69.6 Thrombocytopenia, unspecified; Z82.3 Family history of stroke; Z79.01 Long term (current) use of anticoagulants; Z79.899 Other long term (current) drug therapy; Z80.9 Family history of malignant neoplasm, unspecified; Z82.49 Family history of ischemic heart disease and other diseases of the circulatory system; Z98.890 Other specified postprocedural states; Z82.0 Family history of epilepsy and other diseases of the nervous system; Z82.5 Family history of asthma and other chronic lower respiratory diseases; Z83.3 Family history of diabetes mellitus; Z79.4 Long term (current) use of insulin
CPT/HCPCS: 49083; 89051; 87071; 87205; P9046; C1729; 96365

== ENCOUNTER → 2022-06-29 | Outpatient (CLI) | payer MEDICARE ==
[~2022-06-29] MED LIST changes: -ALBUMIN (HUMAN) 25% 200 ML IV SCH; +ALBUMIN (HUMAN) 25% 300 ML IV SCH; -LACT PO; +LACT10SO9 PO; -Midodrine Hcl PO; -PANT40TA PO
[2022-06-29 17:24] LABS: APPEARANCE BODY FLUID SLIGHTLY CLOUDY (CLEAR); BODY FLUID WBC 18 /cu. mm.; COLOR,BODY FLUID YELLOW (LT YELLOW); SPECIMENTYPE,BODY FLUID ASCITES
[2022-06-29 17:25] LABS: BODY FLUID RBC 1125 /cu. mm.; TOTAL VOLUME,BODY FLUID 7500 mL
[2022-06-29 19:42] LABS: BF LYMPHOCYTE 12 %; BF MESOTHELIAL 36 %; BF OTHER CELLS 6
== END | disposition home or self-care (01) ==
LOC: RAH 08:21
PROVIDERS: ATTEND Family Medicine
DX: R18.8 Other ascites (principal); K74.69 Other cirrhosis of liver; E11.9 Type 2 diabetes mellitus without complications; D64.9 Anemia, unspecified; D69.6 Thrombocytopenia, unspecified; Z82.3 Family history of stroke; Z80.9 Family history of malignant neoplasm, unspecified; Z82.49 Family history of ischemic heart disease and other diseases of the circulatory system; Z83.3 Family history of diabetes mellitus; Z82.0 Family history of epilepsy and other diseases of the nervous system; Z79.4 Long term (current) use of insulin; Z79.899 Other long term (current) drug therapy; Z79.01 Long term (current) use of anticoagulants
CPT/HCPCS: 49083; 89051; 87071; 87205; P9046; C1729; 96365

== ENCOUNTER → 2022-07-06 | Outpatient (CLI) | payer MEDICARE ==
[2022-07-06 12:33] LABS: APPEARANCE BODY FLUID CLOUDY (CLEAR); COLOR,BODY FLUID DARK YELLOW (LT YELLOW); SPECIMENTYPE,BODY FLUID ASCITES
[2022-07-06 12:34] LABS: TOTAL VOLUME,BODY FLUID 8000 mL
[2022-07-06 12:40] LABS: BODY FLUID RBC 6975 /cu. mm.; BODY FLUID WBC 31 /cu. mm.
[2022-07-06 13:12] LABS: BF LYMPHOCYTE 9 %; BF MESOTHELIAL 67 %; BF OTHER CELLS 17
== END | disposition home or self-care (01) ==
LOC: RAH 08:00
PROVIDERS: ATTEND Family Medicine
DX: R18.8 Other ascites (principal); K74.69 Other cirrhosis of liver; E11.9 Type 2 diabetes mellitus without complications; D64.9 Anemia, unspecified; D69.6 Thrombocytopenia, unspecified; Z82.3 Family history of stroke; Z80.9 Family history of malignant neoplasm, unspecified; Z82.49 Family history of ischemic heart disease and other diseases of the circulatory system; Z83.3 Family history of diabetes mellitus; Z82.0 Family history of epilepsy and other diseases of the nervous system; Z79.4 Long term (current) use of insulin; Z79.899 Other long term (current) drug therapy; Z79.01 Long term (current) use of anticoagulants
CPT/HCPCS: 49083; 89051; 87071; 87205; P9046; C1729; 96365

== ENCOUNTER 2022-07-13 00:19 | Emergency (ER) | payer MEDICARE ==
[~2022-07-13] VITALS: Ht 172.7 cm; Wt 72.1 kg
[~2022-07-13 00:19] MED LIST changes: -ALBUMIN (HUMAN) 25% 200 ML IV SCH; -LIDOCAINE HCL MPF 1% 5ML VIAL ONE; -QUESL4 PO
[2022-07-13 01:14] LABS: BASOPHILS % (AUTO) 0.2 % (0.0-5.0); EOSINOPHILS % (AUTO) 1.4 % (0.0-8.0); HEMATOCRIT 22.6 % (42-54); LYMPHOCYTES % (AUTO) 4.9 % (21.0-51.0); MEAN CORPUSCULAR HEMOGLOBIN 32.6 pg (27.0-33.0); MEAN CORPUSCULAR HGB CONC 34.1 g/dL (32.0-36.0); MEAN CORPUSCULAR VOLUME 95.8 fL (79-99); MONOCYTES % (AUTO) 7.8 % (3.0-13.0); NEUTROPHILS % (AUTO) 85.1 % (40.0-77.0); PLATELET COUNT (AUTO) 21 K/uL (130-400); RED BLOOD CELL COUNT(AUTO) 2.36 MIL/uL (4.50-6.20); RED CELL DISTRIBUTION WIDTH 16.5 % (11.0-15.5); WHITE BLOOD COUNT (AUTO) 4.9 K/uL (4.8-10.8)
[2022-07-13 01:26] LABS: APPEARANCE,URINE CLEAR (CLEAR); BILIRUBIN,URINE NEGATIVE (NEGATIVE); COLOR,URINE LIGHT-YELLOW (YELLOW); GLUCOSE, URINE (UA) NEGATIVE (NEGATIVE); KETONES,URINE NEGATIVE (NEGATIVE); LEUKOCYTE ESTERASE ,URINE NEGATIVE Leu/uL (NEGATIVE); NITRATE,URINE NEGATIVE (NEGATIVE); OCCULT BLOOD,URINE NEGATIVE (NEGATIVE); PROTEIN,URINE NEGATIVE (NEGATIVE); UROBILINOGEN,URINE 0.2 mg/dL (0.2-1.0)
[2022-07-13 01:26] LABS: INR 1.39 (0.85-1.15); PROTHROMBIN TIME 14.9 SEC (9.6-11.6)
[2022-07-13 01:27] LABS: PARTIAL THROMBOPLASTIN TIME 42.7 SEC (26.3-35.5)
[2022-07-13 01:29] LABS: PLATELET MORPHOLOGY COMMENT DECREASED
[2022-07-13 01:41] LABS: CREATININE 3.2 mg/dL (0.5-1.5); POTASSIUM 4.1 mmol/L (3.5-5.1)
[2022-07-13 01:45] LABS: ALBUMIN 3.4 g/dL (3.5-5.0); TOTAL PROTEIN, SERUM 7.3 g/dL (6.0-8.3)
[2022-07-13] MEDS: ONDANSETRON 4MG INJ IVP ONE ×2 (01:46→01:53)
[2022-07-13 03:00] VITALS: BP 144/77
== END 2022-07-13 03:42 | disposition home or self-care (01) ==
LOC: EDH 00:19
DX: R53.1 Weakness (principal); E72.20 Disorder of urea cycle metabolism, unspecified; E11.9 Type 2 diabetes mellitus without complications; K74.60 Unspecified cirrhosis of liver; Z79.4 Long term (current) use of insulin; Z79.899 Other long term (current) drug therapy; Z98.890 Other specified postprocedural states
CPT/HCPCS: 99285; 71045; 84484; 80053; 82140; 85025; 85610; 85730; 81003; 36415; 93005; J2405

== ENCOUNTER → 2022-07-13 | Outpatient (CLI) | payer MEDICARE ==
[~2022-07-13] MED LIST changes: +ALBUMIN (HUMAN) 25% 200 ML IV SCH; -ALBUMIN (HUMAN) 25% 300 ML IV SCH; -LIDOCAINE HCL 1% 20 ML VIAL ONE; +LIDOCAINE HCL MPF 1% 5ML VIAL ONE; +QUESL4 PO
[2022-07-13 13:46] LABS: APPEARANCE BODY FLUID SLIGHTLY CLOUDY (CLEAR); BODY FLUID WBC 69 /cu. mm.; COLOR,BODY FLUID YELLOW (LT YELLOW); SPECIMENTYPE,BODY FLUID ASCITES; TOTAL VOLUME,BODY FLUID 6200 mL
[2022-07-13 13:47] LABS: BODY FLUID RBC 3425 /cu. mm.
[2022-07-13 14:14] LABS: BF LYMPHOCYTE 21 %; BF MESOTHELIAL 14 %; BF MONOCYTE 7 %
== END | disposition home or self-care (01) ==
LOC: RAH 07:31
PROVIDERS: ATTEND Family Medicine
DX: R18.8 Other ascites (principal); K74.69 Other cirrhosis of liver; E11.9 Type 2 diabetes mellitus without complications; D64.9 Anemia, unspecified; D69.6 Thrombocytopenia, unspecified; Z82.3 Family history of stroke; Z80.9 Family history of malignant neoplasm, unspecified; Z82.49 Family history of ischemic heart disease and other diseases of the circulatory system; Z83.3 Family history of diabetes mellitus; Z82.0 Family history of epilepsy and other diseases of the nervous system; Z79.4 Long term (current) use of insulin; Z98.890 Other specified postprocedural states; Z79.01 Long term (current) use of anticoagulants; Z79.899 Other long term (current) drug therapy
CPT/HCPCS: 49083; 89051; 87071; 87077; 87186; 87205; P9046; J3490; C1729

== ENCOUNTER → 2022-07-20 | Outpatient (CLI) | payer MEDICARE ==
[~2022-07-20] MED LIST changes: +ALBUMIN (HUMAN) 25% 200 ML IV SCH; +LIDOCAINE HCL 1% 20 ML VIAL ONE
[2022-07-20 13:08] LABS: APPEARANCE BODY FLUID CLEAR (CLEAR); BODY FLUID RBC 2400 /cu. mm.; BODY FLUID WBC 59 /cu. mm.; COLOR,BODY FLUID YELLOW (LT YELLOW); SPECIMENTYPE,BODY FLUID ASCITES; TOTAL VOLUME,BODY FLUID 9200 mL
[2022-07-20 13:31] LABS: BF LYMPHOCYTE 13 %; BF MESOTHELIAL 69 %; BF MONOCYTE 5 %
== END | disposition home or self-care (01) ==
LOC: RAH 08:11
PROVIDERS: ATTEND Family Medicine
DX: R18.8 Other ascites (principal); K74.69 Other cirrhosis of liver; D64.9 Anemia, unspecified; D69.6 Thrombocytopenia, unspecified; E11.9 Type 2 diabetes mellitus without complications; Z79.01 Long term (current) use of anticoagulants; Z79.899 Other long term (current) drug therapy; Z82.3 Family history of stroke; Z80.9 Family history of malignant neoplasm, unspecified; Z82.49 Family history of ischemic heart disease and other diseases of the circulatory system; Z83.3 Family history of diabetes mellitus; Z82.0 Family history of epilepsy and other diseases of the nervous system; Z79.4 Long term (current) use of insulin; Z98.890 Other specified postprocedural states
CPT/HCPCS: 49083; 89051; 87071; 87205; C1729; 96365

== ENCOUNTER → 2022-08-03 | Outpatient (CLI) | payer MEDICARE ==
[~2022-08-03] MED LIST changes: -LIDOCAINE HCL 1% 20 ML VIAL ONE; +QUESL4 PO
[2022-08-03 17:27] LABS: APPEARANCE BODY FLUID SLIGHTLY CLOUDY (CLEAR); COLOR,BODY FLUID DARK YELLOW (LT YELLOW); SPECIMENTYPE,BODY FLUID ASCITES; TOTAL VOLUME,BODY FLUID 9000 mL
[2022-08-03 17:28] LABS: BODY FLUID RBC 4850 /cu. mm.; BODY FLUID WBC 7 /cu. mm.
[2022-08-03 18:30] LABS: BF LYMPHOCYTE 16 %; BF MONOCYTE 6 %; BF OTHER CELLS 4
== END | disposition home or self-care (01) ==
LOC: RAH 08:12
PROVIDERS: ATTEND Family Medicine
DX: R18.8 Other ascites (principal); K74.69 Other cirrhosis of liver; D64.9 Anemia, unspecified; D69.6 Thrombocytopenia, unspecified; E11.9 Type 2 diabetes mellitus without complications; Z79.01 Long term (current) use of anticoagulants; Z79.899 Other long term (current) drug therapy; Z82.3 Family history of stroke; Z80.9 Family history of malignant neoplasm, unspecified; Z82.49 Family history of ischemic heart disease and other diseases of the circulatory system; Z83.3 Family history of diabetes mellitus; Z82.0 Family history of epilepsy and other diseases of the nervous system; Z79.4 Long term (current) use of insulin; Z98.890 Other specified postprocedural states
CPT/HCPCS: 49083; 89051; 87071; 87205; C1729; P9046

== ENCOUNTER 2022-09-02 10:14 | Emergency (ER) | payer MEDICARE ==
[~2022-09-02] VITALS: Ht 172.7 cm; Wt 68.9 kg
[~2022-09-02 10:14] MED LIST changes: -ALBUMIN (HUMAN) 25% 200 ML IV SCH
[2022-09-02 11:00] LABS: BASOPHILS % (AUTO) 1.1 % (0.0-5.0); EOSINOPHILS % (AUTO) 6.4 % (0.0-8.0); HEMATOCRIT 26.2 % (42-54); LYMPHOCYTES % (AUTO) 7.5 % (21.0-51.0); MEAN CORPUSCULAR HEMOGLOBIN 32.6 pg (27.0-33.0); MEAN CORPUSCULAR HGB CONC 33.2 g/dL (32.0-36.0); MEAN CORPUSCULAR VOLUME 98.1 fL (79-99); MONOCYTES % (AUTO) 15.7 % (3.0-13.0); NEUTROPHILS % (AUTO) 68.6 % (40.0-77.0); PLATELET COUNT (AUTO) 18 K/uL (130-400); RED BLOOD CELL COUNT(AUTO) 2.67 MIL/uL (4.50-6.20); RED CELL DISTRIBUTION WIDTH 19.8 % (11.0-15.5); WHITE BLOOD COUNT (AUTO) 2.8 K/uL (4.8-10.8)
[2022-09-02 11:01] LABS: CREATININE 5.7 mg/dL (0.5-1.5); POTASSIUM 4.1 mmol/L (3.5-5.1)
[2022-09-02 11:03] LABS: INR 1.26 (0.85-1.15); PROTHROMBIN TIME 13.6 SEC (9.6-11.6)
[2022-09-02 11:06] LABS: TOTAL PROTEIN, SERUM 6.8 g/dL (6.0-8.3)
[2022-09-02 11:29] LABS: EOSINOPHILS % (MANUAL) 8 % (1-6); LYMPHOCYTES % (MANUAL) 4 % (22-44); MAN.DIFF COMMENT-IMPRESSION MANUAL DIFFERENTIAL; MONOCYTES % (MANUAL) 12 % (2-9); SEGMENTED NEUTROPHILS % 76 % (40-70)
[2022-09-02 11:30] LABS: PLATELET MORPHOLOGY COMMENT MARKED DECREASE
[2022-09-02] MEDS ORDERED: SODIUM BICARB 50MEQ 50ML VIAL 50 ML ONE (11:35)
[2022-09-02] MEDS ORDERED: LIDOCAINE HCL 1% 20 ML VIAL ONE ×2 (11:35→12:07)
[2022-09-02] MEDS ORDERED: ALBUMIN (HUMAN) 25% 200 ML IV ONE (11:36)
[2022-09-02 13:04] VITALS: BP 112/50
== END 2022-09-02 14:26 | disposition home or self-care (01) ==
LOC: EDH 10:14
DX: R18.8 Other ascites (principal); E11.9 Type 2 diabetes mellitus without complications; Z86.2 Personal history of diseases of the blood and blood-forming organs and certain disorders involving the immune mechanism; Z79.4 Long term (current) use of insulin; Z79.899 Other long term (current) drug therapy
CPT/HCPCS: 99285; 80053; 85025; 85610; 36415; 49083; 96365; J3490; P9046; C1729; 49082

== ENCOUNTER 2022-09-06 16:41 | Emergency (ER) | payer MEDICARE ==
[~2022-09-06] VITALS: Ht 172.7 cm; Wt 69.4 kg
[2022-09-06 16:41] VITALS: BP 127/66
== END 2022-09-06 18:33 | disposition left against medical advice (07) ==
LOC: EDH 16:41
DX: Z53.21 Procedure and treatment not carried out due to patient leaving prior to being seen by health care provider (principal)

== ENCOUNTER → 2022-09-08 | Outpatient (CLI) | payer MEDICARE ==
[~2022-09-08] MED LIST changes: +ALBUMIN (HUMAN) 25% 200 ML IV SCH; +CEFD300C3 PO; +CHOL4POW14 PO; +LIDOCAINE HCL 1% 20 ML VIAL ONE; +vitamin b 12 PO
[2022-09-08 13:23] LABS: APPEARANCE BODY FLUID SLIGHTLY CLOUDY (CLEAR); COLOR,BODY FLUID DARK YELLOW (LT YELLOW); SPECIMENTYPE,BODY FLUID ASCITES; TOTAL VOLUME,BODY FLUID 9000 mL
[2022-09-08 13:29] LABS: BODY FLUID WBC 38 /cu. mm.
[2022-09-08 13:30] LABS: BODY FLUID RBC 3150 /cu. mm.
[2022-09-08 14:07] LABS: BF LYMPHOCYTE 16 %; BF MESOTHELIAL 66 %; BF MONOCYTE 13 %
== END | disposition home or self-care (01) ==
LOC: RAH 09:00
PROVIDERS: ATTEND Family Medicine
DX: R18.8 Other ascites (principal); K74.69 Other cirrhosis of liver; D64.9 Anemia, unspecified; D69.6 Thrombocytopenia, unspecified; E11.9 Type 2 diabetes mellitus without complications; Z79.899 Other long term (current) drug therapy; Z98.890 Other specified postprocedural states; Z82.3 Family history of stroke; Z80.9 Family history of malignant neoplasm, unspecified; Z82.49 Family history of ischemic heart disease and other diseases of the circulatory system; Z83.3 Family history of diabetes mellitus; Z82.0 Family history of epilepsy and other diseases of the nervous system; Z79.4 Long term (current) use of insulin; Z79.01 Long term (current) use of anticoagulants
CPT/HCPCS: 49083; 89051; 87071; 87205; P9046; C1729; 96365

== ENCOUNTER 2022-09-16 21:09 | Inpatient (IN) | payer MEDICARE ==
[~2022-09-16] VITALS: Ht 172.7 cm; Wt 68.2 kg
[~2022-09-16 21:09] MED LIST changes: -ALBUMIN (HUMAN) 25% 200 ML IV SCH; -LIDOCAINE HCL 1% 20 ML VIAL ONE
[2022-09-16 23:09] LABS: BASOPHILS % (AUTO) 0.5 % (0.0-5.0); EOSINOPHILS % (AUTO) 2.6 % (0.0-8.0); HEMATOCRIT 23.7 % (42-54); LYMPHOCYTES % (AUTO) 4.2 % (21.0-51.0); MEAN CORPUSCULAR HEMOGLOBIN 32.4 pg (27.0-33.0); MEAN CORPUSCULAR HGB CONC 34.2 g/dL (32.0-36.0); MEAN CORPUSCULAR VOLUME 94.8 fL (79-99); MONOCYTES % (AUTO) 9.4 % (3.0-13.0); NEUTROPHILS % (AUTO) 82.8 % (40.0-77.0); PLATELET COUNT (AUTO) 16 K/uL (130-400); RED CELL DISTRIBUTION WIDTH 19.2 % (11.0-15.5); WHITE BLOOD COUNT (AUTO) 3.8 K/uL (4.8-10.8)
[2022-09-16 23:19] LABS: CREATININE 7.1 mg/dL (0.5-1.5); POTASSIUM 3.7 mmol/L (3.5-5.1)
[2022-09-16 23:24] LABS: ALBUMIN 2.8 g/dL (3.5-5.0); TOTAL PROTEIN, SERUM 6.7 g/dL (6.0-8.3)
[2022-09-17] VITALS (16 sets, daily range): BP systolic 95–129; BP diastolic 48–67
[2022-09-17] MEDS ORDERED: LACTULOSE 20 GM/30 ML UDCUP ONE (00:14)
[2022-09-17] MEDS ORDERED: ONDANSETRON 4MG INJ ONE (00:15)
[2022-09-17] MEDS ORDERED: HYDROCODONE/ACETAMINOPHEN 5/325 MG TAB PO PRN (00:30)
[2022-09-17] MEDS ORDERED: HYDROMORPHONE 1 MG INJ IV PRN (00:30)
[2022-09-17] MEDS ORDERED: ONDANSETRON 4MG INJ IV PRN (00:30)
[2022-09-17] MEDS: LACTULOSE 20 GM/30 ML UDCUP PO SCH ×4 (00:30→21:20)
[2022-09-17 06:58] LABS: BASOPHILS % (AUTO) 0.6 % (0.0-5.0); EOSINOPHILS % (AUTO) 3.7 % (0.0-8.0); HEMATOCRIT 21.4 % (42-54); LYMPHOCYTES % (AUTO) 7.1 % (21.0-51.0); MEAN CORPUSCULAR HGB CONC 34.1 g/dL (32.0-36.0); MEAN CORPUSCULAR VOLUME 96.8 fL (79-99); MONOCYTES % (AUTO) 13.6 % (3.0-13.0); NEUTROPHILS % (AUTO) 74.4 % (40.0-77.0); PLATELET COUNT (AUTO) 13 K/uL (130-400); RED BLOOD CELL COUNT(AUTO) 2.21 MIL/uL (4.50-6.20); WHITE BLOOD COUNT (AUTO) 3.2 K/uL (4.8-10.8)
[2022-09-17 07:16] LABS: CREATININE 7.6 mg/dL (0.5-1.5); MAGNESIUM 2.1 mg/dL (1.80-2.40); PHOSPHORUS 8.9 mg/dL (2.5-4.9); POTASSIUM 3.9 mmol/L (3.5-5.1)
[2022-09-17 07:21] LABS: INR 1.33 (0.85-1.15); PROTHROMBIN TIME 14.3 SEC (9.6-11.6)
[2022-09-17 07:22] LABS: PARTIAL THROMBOPLASTIN TIME 39.2 SEC (26.3-35.5)
[2022-09-17] MEDS: PANTOPRAZOLE 40 MG TAB DR PO SCH (08:49)
[2022-09-17] MEDS ORDERED: FAMOTIDINE 20MG TAB PO SCH (09:00)
[2022-09-17] MEDS ORDERED: HEPARIN 5,000 UNIT VIAL ONE (19:15)
[2022-09-18] VITALS (19 sets, daily range): BP systolic 101–118; BP diastolic 54–70
[2022-09-18 02:52] LABS: HEPATITIS B SURFACE ANTIGEN Non-Reactive (Nonreactive)
[2022-09-18] MEDS: LACTULOSE 20 GM/30 ML UDCUP PO SCH ×2 (02:56→09:38)
[2022-09-18 04:40] LABS: BASOPHILS % (AUTO) 0.6 % (0.0-5.0); EOSINOPHILS % (AUTO) 4.9 % (0.0-8.0); HEMATOCRIT 23.5 % (42-54); LYMPHOCYTES % (AUTO) 6.2 % (21.0-51.0); MEAN CORPUSCULAR HEMOGLOBIN 32.5 pg (27.0-33.0); MEAN CORPUSCULAR VOLUME 95.5 fL (79-99); MONOCYTES % (AUTO) 11.7 % (3.0-13.0); NEUTROPHILS % (AUTO) 76.3 % (40.0-77.0); PLATELET COUNT (AUTO) 14 K/uL (130-400); RED BLOOD CELL COUNT(AUTO) 2.46 MIL/uL (4.50-6.20); RED CELL DISTRIBUTION WIDTH 18.6 % (11.0-15.5); WHITE BLOOD COUNT (AUTO) 3.1 K/uL (4.8-10.8)
[2022-09-18 04:42] LABS: ALBUMIN 2.7 g/dL (3.5-5.0); CREATININE 6.4 mg/dL (0.5-1.5); PHOSPHORUS 7.4 mg/dL (2.5-4.9); TOTAL PROTEIN, SERUM 6.7 g/dL (6.0-8.3)
[2022-09-18] MEDS: PANTOPRAZOLE 40 MG TAB DR PO SCH (09:38)
[2022-09-18] MEDS ORDERED: HEPARIN 5,000 UNIT VIAL IV SCH (16:00)
== END 2022-09-18 16:55 | disposition home or self-care (01) | DRG 441 ==
LOC: EDH 21:09 → EDHIP 23:51 → 4CH 09-17 02:11
PROVIDERS: ADMIT Hospitalist; ATTEND Hospitalist
PROC: 5A1D70Z Performance of Urinary Filtration, Intermittent, Less than 6 Hours Per Day (ICD-10-PCS; principal; 2022-09-17)
PROC: 30233R1 Transfusion of Nonautologous Platelets into Peripheral Vein, Percutaneous Approach (ICD-10-PCS; 2022-09-17)
PROC: 5A1D70Z Performance of Urinary Filtration, Intermittent, Less than 6 Hours Per Day (ICD-10-PCS; 2022-09-18)
DX: K76.82 Hepatic encephalopathy (principal); G92.8 Other toxic encephalopathy; N18.6 End stage renal disease; D61.818 Other pancytopenia; D68.4 Acquired coagulation factor deficiency; E87.20 Acidosis, unspecified; N17.9 Acute kidney failure, unspecified; R18.8 Other ascites; E87.70 Fluid overload, unspecified; K74.69 Other cirrhosis of liver; D69.59 Other secondary thrombocytopenia; E11.22 Type 2 diabetes mellitus with diabetic chronic kidney disease; Z91.199 Patient's noncompliance with other medical treatment and regimen due to unspecified reason; Z79.4 Long term (current) use of insulin; Z82.0 Family history of epilepsy and other diseases of the nervous system; Z82.49 Family history of ischemic heart disease and other diseases of the circulatory system; Z82.5 Family history of asthma and other chronic lower respiratory diseases; Z83.3 Family history of diabetes mellitus; Z86.73 Personal history of transient ischemic attack (TIA), and cerebral infarction without residual deficits; Z99.2 Dependence on renal dialysis
CPT/HCPCS: 36415; 80048; 80053; 82140; 82948; 83735; 84100; 85025; 85610; 85730; 86704; 86706; 86850; 86900; 86901; 87340; 90935; G0378; J1644; J2405; P9034

== ENCOUNTER → 2022-09-24 | Outpatient (CLI) | payer MEDICARE ==
[~2022-09-24] MED LIST changes: +ALBUMIN (HUMAN) 25% 200 ML IV SCH; +CALC0.253 PO; +LIDOCAINE HCL 1% 20 ML VIAL ONE; +LINA5TAB PO; +MIDO10TA PO; +PANT40TA55 PO; +TAMS-1 PO; +URSO500T10 PO
== END | disposition home or self-care (01) ==
LOC: RAH 08:09
PROVIDERS: ATTEND Family Medicine
DX: R18.8 Other ascites (principal); K74.69 Other cirrhosis of liver; D64.9 Anemia, unspecified; D69.6 Thrombocytopenia, unspecified; E11.9 Type 2 diabetes mellitus without complications; Z79.899 Other long term (current) drug therapy; Z79.01 Long term (current) use of anticoagulants; Z98.890 Other specified postprocedural states; Z82.3 Family history of stroke; Z80.9 Family history of malignant neoplasm, unspecified; Z82.49 Family history of ischemic heart disease and other diseases of the circulatory system; Z83.3 Family history of diabetes mellitus; Z80.2 Family history of malignant neoplasm of other respiratory and intrathoracic organs
CPT/HCPCS: 49083; P9046; C1729

== ENCOUNTER 2022-09-26 06:36 | Inpatient (IN) | payer MEDICARE ==
[~2022-09-26] VITALS: Ht 172.7 cm; Wt 69.4 kg
[~2022-09-26 06:36] MED LIST changes: -ALBUMIN (HUMAN) 25% 200 ML IV SCH; -CALC0.253 PO; -LIDOCAINE HCL 1% 20 ML VIAL ONE; -LINA5TAB PO; -MIDO10TA PO; -PANT40TA55 PO; -TAMS-1 PO; -URSO500T10 PO
[2022-09-26 07:06] LABS: BASOPHILS % (AUTO) 0.7 % (0.0-5.0); EOSINOPHILS % (AUTO) 8.5 % (0.0-8.0); HEMATOCRIT 23.5 % (42-54); LYMPHOCYTES % (AUTO) 4.4 % (21.0-51.0); MEAN CORPUSCULAR HEMOGLOBIN 32.9 pg (27.0-33.0); MEAN CORPUSCULAR HGB CONC 33.6 g/dL (32.0-36.0); MEAN CORPUSCULAR VOLUME 97.9 fL (79-99); MONOCYTES % (AUTO) 11.7 % (3.0-13.0); PLATELET COUNT (AUTO) 18 K/uL (130-400); RED CELL DISTRIBUTION WIDTH 17.4 % (11.0-15.5); WHITE BLOOD COUNT (AUTO) 4.1 K/uL (4.8-10.8)
[2022-09-26 07:26] LABS: ALBUMIN 2.9 g/dL (3.5-5.0); CREATININE 5.1 mg/dL (0.5-1.5); POTASSIUM 3.2 mmol/L (3.5-5.1); TOTAL PROTEIN, SERUM 6.9 g/dL (6.0-8.3)
[2022-09-26 07:30] LABS: INR 1.24 (0.85-1.15); PROTHROMBIN TIME 13.4 SEC (9.6-11.6)
[2022-09-26 07:31] LABS: PARTIAL THROMBOPLASTIN TIME 38.1 SEC (26.3-35.5)
[2022-09-26 07:44] LABS: PLATELET MORPHOLOGY COMMENT MARKED DECREASE
[2022-09-26] MEDS ORDERED: LACTULOSE 20 GM/30 ML UDCUP PO SCH ×3 (10:00→14:00)
[2022-09-26] MEDS ORDERED: 0.9% NACL 500ML IV.SOLN 500 ML IV SCH (10:00)
[2022-09-26] MEDS: PANTOPRAZOLE 40 MG/VIAL IVP SCH ×2 (11:17→22:48)
[2022-09-26] MEDS ORDERED: ZOSYN 3.375GM +NS 50ML IV SCH (11:30)
[2022-09-26] MEDS ORDERED: Vitamin B Complex/Vit C/Folic Acid PO SCH (11:30)
[2022-09-26] MEDS ORDERED: TAMS-1 PO (12:15)
[2022-09-26] MEDS ORDERED: MIDO10TA PO (12:15)
[2022-09-26] MEDS ORDERED: CALC0.253 PO (12:15)
[2022-09-26] MEDS ORDERED: URSO500T10 PO (12:15)
[2022-09-26] MEDS ORDERED: LINA5TAB PO (12:15)
[2022-09-26] MEDS ORDERED: PANT40TA55 PO (12:15)
[2022-09-26 12:20] VITALS: BP 95/41
[2022-09-26] MEDS ORDERED: DEXTROSE 50%-WATER 50 ML DISP.SYRIN IV PRN (13:00)
[2022-09-26] MEDS ORDERED: INSULIN HUMULIN R 100 UNIT/ML 3ML SQ SCH (13:00)
[2022-09-26] MEDS ORDERED: GLUCAGON 1MG KIT 1 MG ML IM PRN (13:00)
[2022-09-26 13:04] LABS: HEMOGLOBIN A1C 6.1 % (4.0-6.0)
[2022-09-26 16:00] VITALS: BP 95/47
[2022-09-26] MEDS: INSULIN HUMULIN R 100 UNIT/ML 3ML SQ SCH ×2 (16:30→21:00)
[2022-09-26] MEDS: LACTULOSE 20 GM/30 ML UDCUP PO SCH (17:38)
[2022-09-26 20:00] VITALS: BP 98/53
[2022-09-26] MEDS: RIFAXIMIN 550 MG TABLET PO SCH (20:47)
[2022-09-26] MEDS: ZOSYN 3.375GM +NS 50ML IV SCH (20:47)
[2022-09-27] VITALS: BP 131/62
[2022-09-27] MEDS: LACTULOSE 20 GM/30 ML UDCUP PO SCH ×4 (00:01→17:34)
[2022-09-27 04:00] VITALS: BP 128/60
[2022-09-27 05:10] LABS: BASOPHILS % (AUTO) 0.7 % (0.0-5.0); EOSINOPHILS % (AUTO) 15.1 % (0.0-8.0); LYMPHOCYTES % (AUTO) 7.2 % (21.0-51.0); MEAN CORPUSCULAR HEMOGLOBIN 33.2 pg (27.0-33.0); MEAN CORPUSCULAR HGB CONC 33.7 g/dL (32.0-36.0); MEAN CORPUSCULAR VOLUME 98.5 fL (79-99); MONOCYTES % (AUTO) 12.7 % (3.0-13.0); PLATELET COUNT (AUTO) 15 K/uL (130-400); RED BLOOD CELL COUNT(AUTO) 1.96 MIL/uL (4.50-6.20); RED CELL DISTRIBUTION WIDTH 17.5 % (11.0-15.5); WHITE BLOOD COUNT (AUTO) 2.9 K/uL (4.8-10.8)
[2022-09-27 05:23] LABS: ALBUMIN 2.4 g/dL (3.5-5.0); CREATININE 5.9 mg/dL (0.5-1.5); PHOSPHORUS 5.7 mg/dL (2.5-4.9)
[2022-09-27 05:51] LABS: HEMATOCRIT 19.3 % (42-54)
[2022-09-27 06:17] LABS: BAND NEUTROPHILS % (MANUAL) 10 % (0-2); BASOPHILS % (MANUAL) 1 % (0-2); EOSINOPHILS % (MANUAL) 11 % (1-6); LYMPHOCYTES % (MANUAL) 15 % (22-44); MONOCYTES % (MANUAL) 5 % (2-9); SEGMENTED NEUTROPHILS % 58 % (40-70)
[2022-09-27 06:18] LABS: MAN.DIFF COMMENT-IMPRESSION MANUAL DIFFERENTIAL
[2022-09-27] MEDS ORDERED: POTASSIUM CHLORIDE 10% ELIXIR 20 MEQ/15 ML UDCUP ONE (06:25)
[2022-09-27] MEDS ORDERED: POTASSIUM CHLORIDE 10% ELIXIR 20 MEQ/15 ML UDCUP PO SCH (06:30)
[2022-09-27] MEDS: INSULIN HUMULIN R 100 UNIT/ML 3ML SQ SCH ×4 (06:54→21:30)
[2022-09-27 08:00] VITALS: BP 99/53
[2022-09-27] MEDS ORDERED: RIFAXIMIN 550 MG TABLET PO SCH (09:00)
[2022-09-27] MEDS ORDERED: URSODIOL 500 MG PO SCH (09:00)
[2022-09-27] MEDS: URSODIOL 500 MG PO SCH ×2 (09:00→21:00)
[2022-09-27] MEDS ORDERED: NON-FORMULARY MEDICATION 1 EACH (Midodrine HCl 10 MG) PO SCH (09:00)
[2022-09-27] MEDS: ZOSYN 3.375GM +NS 50ML IV SCH ×2 (09:19→21:15)
[2022-09-27] MEDS: MIDODRINE HCL 5 MG TABLET PO SCH ×3 (09:19→21:15)
[2022-09-27] MEDS: RIFAXIMIN 550 MG TABLET PO SCH ×2 (09:19→21:15)
[2022-09-27] MEDS: Vitamin B Complex/Vit C/Folic Acid PO SCH (09:20)
[2022-09-27] MEDS: TAMSULOSIN HCL 0.4 MG CAP.ER.24H PO SCH (09:20)
[2022-09-27] MEDS: LINAGLIPTIN 5 MG TABLET PO SCH (09:20)
[2022-09-27] MEDS: PANTOPRAZOLE 40 MG/VIAL IVP SCH (11:23)
[2022-09-27 11:35] VITALS: BP 95/55
[2022-09-27] MEDS ORDERED: HYDROXYZINE 25 MG TABLET PO PRN (13:30)
[2022-09-27 16:00] VITALS: BP 97/57
[2022-09-27 20:00] VITALS: BP 108/58
[2022-09-28] VITALS (21 sets, daily range): BP systolic 91–121; BP diastolic 50–89
[2022-09-28] MEDS: PANTOPRAZOLE 40 MG/VIAL IVP SCH ×3 (00:39→23:19)
[2022-09-28] MEDS: LACTULOSE 20 GM/30 ML UDCUP PO SCH ×5 (00:39→23:19)
[2022-09-28 05:16] LABS: BASOPHILS % (AUTO) 0.6 % (0.0-5.0); EOSINOPHILS % (AUTO) 14.4 % (0.0-8.0); LYMPHOCYTES % (AUTO) 7.6 % (21.0-51.0); MEAN CORPUSCULAR HEMOGLOBIN 33.3 pg (27.0-33.0); MEAN CORPUSCULAR HGB CONC 33.5 g/dL (32.0-36.0); MEAN CORPUSCULAR VOLUME 99.5 fL (79-99); MONOCYTES % (AUTO) 10.7 % (3.0-13.0); NEUTROPHILS % (AUTO) 66.1 % (40.0-77.0); PLATELET COUNT (AUTO) 17 K/uL (130-400); RED CELL DISTRIBUTION WIDTH 17.1 % (11.0-15.5); WHITE BLOOD COUNT (AUTO) 3.3 K/uL (4.8-10.8)
[2022-09-28 05:25] LABS: HEMATOCRIT 20.9 % (42-54)
[2022-09-28 05:26] LABS: ALBUMIN 2.4 g/dL (3.5-5.0); BILIRUBIN,DIRECT 0.9 mg/dL (0.0-0.3); CREATININE 7.1 mg/dL (0.5-1.5); POTASSIUM 3.5 mmol/L (3.5-5.1); TOTAL PROTEIN, SERUM 6.1 g/dL (6.0-8.3)
[2022-09-28] MEDS: INSULIN HUMULIN R 100 UNIT/ML 3ML SQ SCH ×4 (06:57→21:00)
[2022-09-28] MEDS: URSODIOL 500 MG PO SCH ×2 (09:00→21:00)
[2022-09-28] MEDS: TAMSULOSIN HCL 0.4 MG CAP.ER.24H PO SCH (09:39)
[2022-09-28] MEDS: ZOSYN 3.375GM +NS 50ML IV SCH ×2 (09:39→23:19)
[2022-09-28] MEDS: Vitamin B Complex/Vit C/Folic Acid PO SCH (09:39)
[2022-09-28] MEDS: RIFAXIMIN 550 MG TABLET PO SCH ×2 (09:39→23:19)
[2022-09-28] MEDS: LINAGLIPTIN 5 MG TABLET PO SCH (09:39)
[2022-09-28] MEDS: MIDODRINE HCL 5 MG TABLET PO SCH ×3 (09:39→23:19)
[2022-09-28] MEDS ORDERED: ALLOPURINOL 100 MG TABLET PO SCH (21:00)
[2022-09-29 04:54] VITALS: BP 100/50
[2022-09-29 05:29] LABS: BASOPHILS % (AUTO) 0.6 % (0.0-5.0); EOSINOPHILS % (AUTO) 11.7 % (0.0-8.0); LYMPHOCYTES % (AUTO) 6.3 % (21.0-51.0); MEAN CORPUSCULAR HEMOGLOBIN 33.2 pg (27.0-33.0); MEAN CORPUSCULAR HGB CONC 33.8 g/dL (32.0-36.0); MONOCYTES % (AUTO) 9.8 % (3.0-13.0); PLATELET COUNT (AUTO) 13 K/uL (130-400); RED BLOOD CELL COUNT(AUTO) 1.99 MIL/uL (4.50-6.20); RED CELL DISTRIBUTION WIDTH 17.3 % (11.0-15.5); WHITE BLOOD COUNT (AUTO) 3.2 K/uL (4.8-10.8)
[2022-09-29 05:33] LABS: HEMATOCRIT 19.5 % (42-54)
[2022-09-29 05:53] LABS: ALBUMIN 2.2 g/dL (3.5-5.0); CREATININE 5.6 mg/dL (0.5-1.5); POTASSIUM 3.2 mmol/L (3.5-5.1); TOTAL PROTEIN, SERUM 5.8 g/dL (6.0-8.3)
[2022-09-29] MEDS: LACTULOSE 20 GM/30 ML UDCUP PO SCH ×3 (06:00→17:14)
[2022-09-29] MEDS: INSULIN HUMULIN R 100 UNIT/ML 3ML SQ SCH ×3 (06:11→16:30)
[2022-09-29 08:00] VITALS: BP 96/41
[2022-09-29] MEDS: MIDODRINE HCL 5 MG TABLET PO SCH ×2 (08:17→17:14)
[2022-09-29] MEDS: RIFAXIMIN 550 MG TABLET PO SCH (08:17)
[2022-09-29] MEDS: URSODIOL 500 MG PO SCH (08:17)
[2022-09-29] MEDS: ZOSYN 3.375GM +NS 50ML IV SCH (08:17)
[2022-09-29] MEDS: Vitamin B Complex/Vit C/Folic Acid PO SCH (08:17)
[2022-09-29] MEDS: LINAGLIPTIN 5 MG TABLET PO SCH (08:17)
[2022-09-29] MEDS: TAMSULOSIN HCL 0.4 MG CAP.ER.24H PO SCH (08:17)
[2022-09-29 11:51] VITALS: BP 88/49
[2022-09-29] MEDS: PANTOPRAZOLE 40 MG/VIAL IVP SCH (12:31)
[2022-09-29 15:52] VITALS: BP 92/50
== END 2022-09-29 18:00 | disposition home or self-care (01) | DRG 441 ==
LOC: EDH 06:36 → EDHIP 11:01 → 4AH 12:31
PROVIDERS: ADMIT Hospitalist; ATTEND Internal Medicine
PROC: 5A1D70Z Performance of Urinary Filtration, Intermittent, Less than 6 Hours Per Day (ICD-10-PCS; 2022-09-28)
PROC: 30233N1 Transfusion of Nonautologous Red Blood Cells into Peripheral Vein, Percutaneous Approach (ICD-10-PCS; principal; 2022-09-29)
PROC: 30233R1 Transfusion of Nonautologous Platelets into Peripheral Vein, Percutaneous Approach (ICD-10-PCS; 2022-09-29)
PROC: 0W9G30Z Drainage of Peritoneal Cavity with Drainage Device, Percutaneous Approach (ICD-10-PCS; 2022-09-29)
DX: K76.82 Hepatic encephalopathy (principal); K76.7 Hepatorenal syndrome; N18.6 End stage renal disease; E87.20 Acidosis, unspecified; D68.9 Coagulation defect, unspecified; R18.8 Other ascites; I12.0 Hypertensive chronic kidney disease with stage 5 chronic kidney disease or end stage renal disease; K74.60 Unspecified cirrhosis of liver; Z20.822 Contact with and (suspected) exposure to COVID-19; D63.8 Anemia in other chronic diseases classified elsewhere; D72.819 Decreased white blood cell count, unspecified; D69.6 Thrombocytopenia, unspecified; D50.0 Iron deficiency anemia secondary to blood loss (chronic); E11.22 Type 2 diabetes mellitus with diabetic chronic kidney disease; Z99.2 Dependence on renal dialysis; Z79.899 Other long term (current) drug therapy; Z79.84 Long term (current) use of oral hypoglycemic drugs
CPT/HCPCS: 36415; 49083; 70450; 71045; 74018; 76700; 80048; 80053; 80076; 82140; 82550; 82948; 83036; 83605; 83735; 83880; 84100; 84145; 84484; 85025; 85610; 85651; 85730; 86140; 86850; 86900; 86901; 86923; 87040; 87804; 90935; 93005; C1729; C9113; G0378; J1815; J2543; J7040; P9016; P9034

== ENCOUNTER → 2022-10-05 | Outpatient (CLI) | payer MEDICARE ==
[~2022-10-05] MED LIST changes: +ALBUMIN (HUMAN) 25% 200 ML IV SCH; +CALC0.253 PO; -CEFD300C3 PO; -CHOL4POW14 PO; +LIDOCAINE HCL MPF 1% 5ML VIAL ONE; +LINA5TAB PO; +MIDO10TA PO; +PANT40TA55 PO; -QUESL4 PO; +TAMS-1 PO; +URSO500T10 PO
== END | disposition home or self-care (01) ==
LOC: RAH 10:58
PROVIDERS: ATTEND Family Medicine
DX: R18.8 Other ascites (principal); K74.69 Other cirrhosis of liver; E11.22 Type 2 diabetes mellitus with diabetic chronic kidney disease; N18.6 End stage renal disease; Z79.01 Long term (current) use of anticoagulants; Z79.899 Other long term (current) drug therapy; Z98.890 Other specified postprocedural states
CPT/HCPCS: 49083; P9046; J3490; C1729; 96365

== ENCOUNTER → 2022-10-29 | Outpatient (CLI) | payer MEDICARE ==
[~2022-10-29] MED LIST changes: +LIDOCAINE HCL 1% 20 ML VIAL ONE; -LIDOCAINE HCL MPF 1% 5ML VIAL ONE; -vitamin b 12 PO
== END | disposition home or self-care (01) ==
LOC: RAH 09:52
PROVIDERS: ATTEND Family Medicine
DX: R18.8 Other ascites (principal); K74.69 Other cirrhosis of liver; E11.22 Type 2 diabetes mellitus with diabetic chronic kidney disease; N18.6 End stage renal disease; Z79.01 Long term (current) use of anticoagulants; Z79.899 Other long term (current) drug therapy; Z98.890 Other specified postprocedural states
CPT/HCPCS: 49083; P9046; C1729

== ENCOUNTER → 2022-11-05 | Outpatient (CLI) | payer MEDICARE | END | disposition home or self-care (01) | LOC: RAH 09:07 | PROVIDERS: ATTEND Family Medicine | DX: R18.8 Other ascites (principal); K74.69 Other cirrhosis of liver; E11.22 Type 2 diabetes mellitus with diabetic chronic kidney disease; N18.6 End stage renal disease; N40.0 Benign prostatic hyperplasia without lower urinary tract symptoms; K21.9 Gastro-esophageal reflux disease without esophagitis; Z79.899 Other long term (current) drug therapy; Z79.01 Long term (current) use of anticoagulants | CPT/HCPCS: 49083; P9046; C1729; 96365 ==

== ENCOUNTER → 2022-11-12 | Outpatient (CLI) | payer MEDICARE ==
[2022-11-12 11:28] LABS: INR 1.4 (0.85-1.15)
[2022-11-12 11:29] LABS: PARTIAL THROMBOPLASTIN TIME 45.6 SEC (26.3-35.5)
== END | disposition home or self-care (01) ==
LOC: RAH 08:41
PROVIDERS: ATTEND Family Medicine
DX: R18.8 Other ascites (principal); K74.69 Other cirrhosis of liver; E11.22 Type 2 diabetes mellitus with diabetic chronic kidney disease; N18.6 End stage renal disease; N40.0 Benign prostatic hyperplasia without lower urinary tract symptoms; K21.9 Gastro-esophageal reflux disease without esophagitis; Z79.01 Long term (current) use of anticoagulants; Z79.899 Other long term (current) drug therapy
CPT/HCPCS: 49083; 85610; 85730; 36415; P9046; C1729

== ENCOUNTER 2022-11-18 06:32 | Emergency (ER) | payer MEDICARE ==
[~2022-11-18] VITALS: Ht 172.7 cm; Wt 68.0 kg
[~2022-11-18 06:32] MED LIST changes: -ALBUMIN (HUMAN) 25% 200 ML IV SCH; -LIDOCAINE HCL 1% 20 ML VIAL ONE
[2022-11-18 06:57] LABS: BASOPHILS % (AUTO) 0.7 % (0.0-5.0); EOSINOPHILS % (AUTO) 7.7 % (0.0-8.0); HEMATOCRIT 27.3 % (42-54); LYMPHOCYTES % (AUTO) 13.7 % (21.0-51.0); MEAN CORPUSCULAR VOLUME 106.2 fL (79-99); MONOCYTES % (AUTO) 7.9 % (3.0-13.0); NEUTROPHILS % (AUTO) 69.1 % (40.0-77.0); PLATELET COUNT (AUTO) 31 K/uL (130-400); RED BLOOD CELL COUNT(AUTO) 2.57 MIL/uL (4.50-6.20); RED CELL DISTRIBUTION WIDTH 17.2 % (11.0-15.5); WHITE BLOOD COUNT (AUTO) 4.5 K/uL (4.8-10.8)
[2022-11-18 07:08] LABS: INR 1.25 (0.85-1.15); PROTHROMBIN TIME 13.5 SEC (9.6-11.6)
[2022-11-18 07:09] LABS: PARTIAL THROMBOPLASTIN TIME 35.2 SEC (26.3-35.5)
[2022-11-18 07:14] LABS: ALBUMIN 2.9 g/dL (3.5-5.0); CREATININE 5.6 mg/dL (0.5-1.5); POTASSIUM 3.2 mmol/L (3.5-5.1); TOTAL PROTEIN, SERUM 6.7 g/dL (6.0-8.3)
[2022-11-18 07:59] LABS: PLATELET MORPHOLOGY COMMENT MARKED DECREASE
[2022-11-18] MEDS ORDERED: POTASSIUM BICARB/CIT AC 25 MEQ TABLET.EFF PO ONE (08:00)
[2022-11-18 08:06] LABS: B-TYPE NATRIURETIC PEPTIDE 18 pg/mL (0-100)
[2022-11-18] MEDS ORDERED: SODIUM BICARB 50MEQ 50ML VIAL 50 ML ONE (08:33)
[2022-11-18] MEDS ORDERED: LIDOCAINE HCL 1% 20 ML VIAL ONE (08:33)
[2022-11-18] MEDS ORDERED: ALBUMIN (HUMAN) 25% 200 ML IV ONE (08:34)
[2022-11-18] MEDS ORDERED: ACETAMINOPHEN WITH CODEINE 1 TAB TAB PO ONE (11:00)
[2022-11-18 11:35] VITALS: BP 96/62
[2022-11-18 13:35] LABS: APPEARANCE BODY FLUID CLOUDY (CLEAR); COLOR,BODY FLUID RED (LT YELLOW); SPECIMENTYPE,BODY FLUID ASCITES; TOTAL VOLUME,BODY FLUID 9000 mL
[2022-11-18 13:36] LABS: BODY FLUID RBC 24702 /cu. mm.; BODY FLUID WBC 3915 /cu. mm.
[2022-11-18 15:11] LABS: BF LYMPHOCYTE 1 %; BF MONOCYTE 4 %
== END 2022-11-18 11:37 | disposition home or self-care (01) ==
LOC: EDH 06:32
DX: K74.60 Unspecified cirrhosis of liver (principal); N18.6 End stage renal disease; E78.00 Pure hypercholesterolemia, unspecified; K21.9 Gastro-esophageal reflux disease without esophagitis; Z79.84 Long term (current) use of oral hypoglycemic drugs; Z79.899 Other long term (current) drug therapy
CPT/HCPCS: 99285; 80053; 83880; 82140; 83690; 85025; 89051; 85610; 85730; 86850; 86900; 86901; 87071; 87205; 36415; 49083; 96365; 96375; J3490; P9046; C1729

== ENCOUNTER → 2022-11-24 | Outpatient (CLI) | payer MEDICARE ==
[~2022-11-24] MED LIST changes: +ALBUMIN (HUMAN) 25% 200 ML IV ONE; +ALBUMIN (HUMAN) 25% 200 ML IV SCH; +LIDOCAINE HCL 1% 20 ML VIAL ONE
== END | disposition home or self-care (01) ==
LOC: RAH 08:08
PROVIDERS: ATTEND Family Medicine
DX: R18.8 Other ascites (principal); K74.69 Other cirrhosis of liver; E11.22 Type 2 diabetes mellitus with diabetic chronic kidney disease; N18.6 End stage renal disease; N40.0 Benign prostatic hyperplasia without lower urinary tract symptoms; K21.9 Gastro-esophageal reflux disease without esophagitis; Z79.899 Other long term (current) drug therapy; Z79.01 Long term (current) use of anticoagulants
CPT/HCPCS: 49083; P9046; C1729; 96365